=== PATIENT | male | born 1970 | race Caucasian/White ===

== ENCOUNTER 2023-05-19 14:26 | Emergency (ER) | payer MEDICAID, OTHER ==
[~2023-05-19] VITALS: Ht 180.3 cm; Wt 122.7 kg
[~2023-05-19 14:26] MED LIST: IBUP-1985 PO
[2023-05-19 15:02] VITALS: TEMP 97.8
[2023-05-19 15:09] LABS: BASOPHILS % (AUTO) 0.3 % (0-1); EOSINOPHILS # (AUTO) 0.1 X10'3 (0-0.9); EOSINOPHILS % (AUTO) 1.4 % (0-6); HEMATOCRIT 47.1 % (42.0-52.0); HEMOGLOBIN 16.2 g/dl (14.0-17.9); LYMPHOCYTES # (AUTO) 2.1 X10'3 (1.1-4.8); LYMPHOCYTES % (AUTO) 29.3 % (21-51); MEAN CORPUSCULAR HEMOGLOBIN 30.7 PG (27.0-31.0); MEAN CORPUSCULAR HGB CONC 34.4 g/dL (33.0-36.5); MEAN CORPUSCULAR VOLUME 89.4 FL (78-98); MEAN PLATELET VOLUME 9.6 FL (7.4-10.4); MONOCYTES # (AUTO) 0.5 X10'3 (0-0.9); MONOCYTES % (AUTO) 6.9 % (2-12); NEUTROPHILS # (AUTO) 4.5 X10'3 (1.8-7.7); NEUTROPHILS % (AUTO) 62.1 % (42-75); PLATELET COUNT 245 X10'3 (140-440); RED BLOOD COUNT 5.28 X10'6 (4.70-6.10); RED CELL DISTRIBUTION WIDTH 12.7 % (11.5-14.5); WHITE BLOOD COUNT 7.2 X10'3 (4.5-11.0)
[2023-05-19 15:34] VITALS: BP 103/75; PULSE 77; RESP 18; O2SAT 96
[2023-05-19 15:35] LABS: ALANINE AMINOTRANSFERASE 23 U/L (12-78); ALBUMIN 3.7 G/DL (3.4-5.0); ALBUMIN/GLOBULIN RATIO 0.8 (1.1-1.5); ALKALINE PHOSPHATASE 92 IU/L (46-116); ANION GAP 7 (8-16); ASPARTATE AMINO TRANSFERASE 22 U/L (10-37); BILIRUBIN,TOTAL 0.4 MG/DL (0.1-1.0); BLOOD UREA NITROGEN 10 MG/DL (7-18); CALCIUM 9.1 MG/DL (8.5-10.1); CHLORIDE 96 MMOL/L (99-107); CREATININE 1.11 MG/DL (0.60-1.10); POTASSIUM 3.9 MMOL/L (3.5-5.1); PRO BRAIN NATRIURETIC PEPTIDE < 30 PG/ML (0-125); SODIUM 130 MMOL/L (135-145); TOTAL CARBON DIOXIDE 26.6 MMOL/L (24-32); TOTAL PROTEIN 8.1 G/DL (6.4-8.2); eCRCL 85 ML/MIN; eGFR 70 ML/MIN
[2023-05-19 15:46] LABS: GLUCOSE 515 MG/DL (70-104)
--- NOTE | 2023-05-19 16:59 | NUR ---
pt wanting to leave [facility] because he can't eat d/t failing swallow screen. Dr Ana jane. Waiting return call.
== END 2023-05-19 18:16 | disposition left against medical advice (07) ==
LOC: ER 14:27
DX: R07.89 Other chest pain (principal); E11.9 Type 2 diabetes mellitus without complications; Z88.0 Allergy status to penicillin; Z79.2 Long term (current) use of antibiotics
CPT/HCPCS: 36415; 71045; 80053; 83880; 84484; 85025; 93005; 99285

== ENCOUNTER 2024-12-05 17:16 | Inpatient (IN) | payer MEDICAID ==
[~2024-12-05] VITALS: Ht 177.8 cm; Wt 89.3 kg
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
[2024-12-05] MEDS ORDERED: vancomycin inj 1,000 MG in normal saline 250ml IV soln 250 ML IV ONE (18:15)
[2024-12-05 18:20] LABS: BASOPHILS # (AUTO) 0.1 X10'3 (0-0.2); BASOPHILS % (AUTO) 1.5 % (0-1); EOSINOPHILS # (AUTO) 0.1 X10'3 (0-0.9); EOSINOPHILS % (AUTO) 1.2 % (0-6); HEMATOCRIT 27.1 % (42.0-52.0); HEMOGLOBIN 9.2 g/dl (14.0-17.9); LYMPHOCYTES # (AUTO) 1.8 X10'3 (1.1-4.8); LYMPHOCYTES % (AUTO) 23.1 % (21-51); MEAN CORPUSCULAR HGB CONC 33.8 g/dL (33.0-36.5); MEAN PLATELET VOLUME 7.2 FL (7.4-10.4); MONOCYTES # (AUTO) 0.6 X10'3 (0-0.9); MONOCYTES % (AUTO) 8.5 % (2-12); NEUTROPHILS % (AUTO) 65.7 % (42-75); PLATELET COUNT 703 X10'3 (140-440); RED BLOOD COUNT 3.27 X10'6 (4.70-6.10); RED CELL DISTRIBUTION WIDTH 13.9 % (11.5-14.5); WHITE BLOOD COUNT 7.6 X10'3 (4.5-11.0)
--- NOTE | 2024-12-05 18:26 | RADIOLOGY REPORT ---
CHEST RADIOGRAPH Indication: SEPSIS Technique: Single frontal view of the chest was obtained Comparison: DI CHEST,SINGLE VIEW on DOS: 05/19/23 FINDINGS: Lines and Tubes: None appears to be a foreign body in the right upper chest or can be an artifact Lungs: No focal consolidation. Pleura: No effusion. No pneumothorax. Cardiomediastinal contours: Unremarkable Bones: No acute osseous abnormality. IMPRESSION: 1. No acute cardiopulmonary disease.
[2024-12-05 18:28] LABS: ANION GAP 6 (8-16); BLOOD UREA NITROGEN 12 MG/DL (7-18); BUN/CREATININE RATIO 9.8 (10.0-20.0); CALCIUM 9.2 MG/DL (8.5-10.1); CHLORIDE 99 MMOL/L (99-107); CREATININE 1.22 MG/DL (0.60-1.10); GLUCOSE 189 MG/DL (70-104); POTASSIUM 4.4 MMOL/L (3.5-5.1); SODIUM 133 MMOL/L (135-145); TOTAL CARBON DIOXIDE 27.7 MMOL/L (24-32); eCRCL 69 ML/MIN; eGFR 62 ML/MIN
[2024-12-05] MEDS: normal saline 1000ML IV soln IVB ONE ×2 (18:54→18:57)
[2024-12-05] MEDS ORDERED: iohexol 300mg/ml 100ml inj. ONE (18:54)
[2024-12-05] MEDS: cefepime 1GM/NS ADD-VANTAGE 100 ML IV ONE (18:55)
[2024-12-05] MEDS: vancomycin/NS 1 GM ADD-VANTAGE 250 ML IV ONE (19:23)
[2024-12-05] MEDS ORDERED: potassium Cl 40MEQ/1/2NS 520ml 520 ML IV PRN (19:35)
[2024-12-05] MEDS ORDERED: potassium Cl 20 mEq SR tablet PO PRN ×2 (19:35)
[2024-12-05] MEDS ORDERED: magnesium sulf-water 2g/50mL 50 ML IV PRN (19:35)
[2024-12-05] MEDS ORDERED: mag hydrox/Alum hydrox/simeth 30ml oral suspension PO PRN (19:35)
[2024-12-05] MEDS ORDERED: magnesium sulf-water 4G/100mL 100 ML IV PRN (19:35)
[2024-12-05] MEDS ORDERED: acetaminophen 325mg tablet PO PRN (19:35)
[2024-12-05] MEDS ORDERED: magnesium Cl slow-release 64mg tablet PO PRN (19:35)
[2024-12-05] MEDS ORDERED: GABA-535 PO (19:36)
[2024-12-05] MEDS ORDERED: SULF-14 PO (19:36)
[2024-12-05] MEDS ORDERED: AMOX-14 PO (19:36)
[2024-12-05] MEDS: docusate sod 100mg capsule PO SCH (20:00)
[2024-12-05] MEDS: K and/or MAG REPLACEMENT MC SCH (20:02)
[2024-12-05 20:13] LABS: HEMOGLOBIN A1C 6.6 % (4.5-6.2)
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
--- NOTE | 2024-12-05 20:46 | RADIOLOGY REPORT ---
INDICATION: infection right COMPARISON: None TECHNIQUE: CT of the right lower extremity was performed with contrast. Volume transverse images were obtained and reconstructed in multiple planes using bone and soft tissue algorithms. Radiation Dose Information: CT Dose: CTDI volume is 14.4 mGy. Dose-length product is 908.9 mGy*cm FINDINGS/IMPRESSION: Post resection of the distal 1st digit past the level of the 1st metatarsal. Surgical screw fixation of the distal fibula and distal tibia /ankle joint. Severe destructive changes of the ankle joint. Severe edema and phlegmonous type change within and around the ankle joint. Few ill-defined fluid col lections are present adjacent to the medial malleolus largest of which measures 2.0 cm. Severe soft-tissue swelling and ulceration of the medial malleolus and distal 1st metatarsal. Acute on chronic osteomyelitis are within differential considerations. Clinical correlation advised.
[2024-12-05] MEDS ORDERED: dextrose 50%-water 50ml dispensing syringe IV PRN ×2 (20:55)
[2024-12-05] MEDS ORDERED: DEXTROSE 15 GM of carb/4 tabs (each vial/BOTTLE has 4 tablets) PO PRN ×2 (20:55)
[2024-12-05] MEDS ORDERED: glucagon, human recombinant 1mg kit SUBCUT PRN (20:55)
[2024-12-05 21:05] LABS: C-REACTIVE PROTEIN 7.08 MG/DL (0.0-0.5)
[2024-12-05 21:15] VITALS: BP 121/62; PULSE 91; TEMP 99; O2SAT 97
[2024-12-05] MEDS: normal saline 1000ml 1,000 ML IV SCH (21:21)
[2024-12-05] MEDS: INSULIN LISPRO 100 UNIT/ML INSULN.PEN MULTI-DOSE SQ SCH (22:24)
[2024-12-05] MEDS: morphine 2 MG/ML inj. syringe IV PRN (22:25)
[2024-12-05 23:21] LABS: BILIRUBIN,URINE NEGATIVE (Neg); CLARITY,URINE CLEAR (Clear); COLOR,URINE YELLOW (Yellow); GLUCOSE, URINE NEGATIVE (Neg); KETONES,URINE NEGATIVE (Neg); LEUKOCYTE ESTERASE ,URINE NEGATIVE (Neg); NITRITES, URINE NEGATIVE (Neg); OCCULT BLOOD,URINE MODERATE (Neg); PROTEIN,URINE NEGATIVE (Neg)
[2024-12-05 23:24] LABS: UA COLLECTION TYPE URINAL
[2024-12-05 23:27] LABS: BACTERIA,URINE FEW /HPF (Neg); RBC,URINE 20-50 /HPF (0-2); SQUAMOUS EPITHELIAL CELL,UR NONE SEEN /LPF (FEW); WBC,URINE 0-4 /HPF (0-4)
[2024-12-05 23:48] LABS: UA EOSINOPHILS NO EOS /HPF
[2024-12-05 23:56] LABS: TOTAL PROTEIN,URINE RANDOM 14.2 MG/DL
[2024-12-06] MEDS: piperacillin/tazo 3.375gm/50ml 50 ML IV SCH (00:04)
[2024-12-06 01:35] VITALS: BP 128/53; PULSE 125; TEMP 98.5; O2SAT 97
[2024-12-06] MEDS: ondansetron/PF 4mg/2ml inj IV PRN (03:04)
[2024-12-06 04:46] LABS: BASOPHILS % (AUTO) 0.5 % (0-1); EOSINOPHILS # (AUTO) 0.1 X10'3 (0-0.9); EOSINOPHILS % (AUTO) 0.7 % (0-6); HEMATOCRIT 24.2 % (42.0-52.0); HEMOGLOBIN 8.1 g/dl (14.0-17.9); LYMPHOCYTES # (AUTO) 0.4 X10'3 (1.1-4.8); LYMPHOCYTES % (AUTO) 5.1 % (21-51); MEAN CORPUSCULAR HEMOGLOBIN 27.6 PG (27.0-31.0); MEAN CORPUSCULAR HGB CONC 33.4 g/dL (33.0-36.5); MEAN CORPUSCULAR VOLUME 82.7 FL (78-98); MEAN PLATELET VOLUME 7.2 FL (7.4-10.4); MONOCYTES # (AUTO) 0.1 X10'3 (0-0.9); NEUTROPHILS # (AUTO) 6.9 X10'3 (1.8-7.7); NEUTROPHILS % (AUTO) 91.7 % (42-75); PLATELET COUNT 384 X10'3 (140-440); RED BLOOD COUNT 2.92 X10'6 (4.70-6.10); RED CELL DISTRIBUTION WIDTH 13.9 % (11.5-14.5); WHITE BLOOD COUNT 7.5 X10'3 (4.5-11.0)
[2024-12-06] MEDS: metoclopramide 5 mg/ml inj IV ONE (05:00)
[2024-12-06 05:13] LABS: % IRON SATURATION 21 % (11-46); IRON 23 UG/DL (53-167); TOTAL IRON BINDING CAPACITY 107 UG/DL (259-388)
[2024-12-06 05:18] LABS: ALANINE AMINOTRANSFERASE 12 U/L (12-78); ALBUMIN 1.5 G/DL (3.4-5.0); ALBUMIN/GLOBULIN RATIO 0.2 (1.1-1.5); ALKALINE PHOSPHATASE 170 IU/L (46-116); ANION GAP 5 (8-16); ASPARTATE AMINO TRANSFERASE 23 U/L (10-37); BILIRUBIN,TOTAL 0.2 MG/DL (0.1-1.0); BLOOD UREA NITROGEN 10 MG/DL (7-18); CALCIUM 8.2 MG/DL (8.5-10.1); CHLORIDE 104 MMOL/L (99-107); CREATININE 1.11 MG/DL (0.60-1.10); FERRITIN 535 NG/ML (26-388); GLUCOSE 117 MG/DL (70-104); MAGNESIUM 1.6 MG/DL (1.5-2.4); POTASSIUM 4.2 MMOL/L (3.5-5.1); SODIUM 133 MMOL/L (135-145); TOTAL CARBON DIOXIDE 24.5 MMOL/L (24-32); TOTAL PROTEIN 7.6 G/DL (6.4-8.2); eCRCL 80 ML/MIN; eGFR 70 ML/MIN
[2024-12-06 06:00] VITALS: BP 100/52; PULSE 93; RESP 16; TEMP 98.7; O2SAT 96
[2024-12-06 08:00] VITALS: RESP 16; O2SAT 96
--- NOTE | 2024-12-06 08:18 | PROGRESS NOTE ---
Daily Progress Note Providers to CC ~ Antibiotic Timeout Antibiotic Ordered?: Yes Subjective cc- I am getting severely agitated as I have not eaten since 9:00 p.m. and anyways I am going to do surgery at midnight when are you going to do the stupid surgery and if I wants surgery and wanted cut at my ankle I want to cut below my knee and what prosthesis 2nd go back to work I want this done sooner than later I am tired of [facility] cutting small pieces at a time. When I asked him how many surgeries he has had he has only had one amputation of the right 1st toe so when I asked him what is the mean cutting little pieces he states that is the way it normally happens and that is not what he wants he wants to be amputated at the knee. He wants to be fed ROJELIO. Review of systems negative for all 10 systems reviewed Objective Vital Signs Date Time Temp Pulse Resp B/P (MAP) Pulse Ox O2 Delivery O2 Flow Rate FiO2 12/06/24 03:54 14 12/06/24 02:03 Room Air 12/06/24 01:35 98.5 125 128/53 (78) 97 Result Diagram: 12/06/24 0423 12/06/24 0423 Patient is alert and oriented x3 in no acute distress lying down comfortably speaking in full sentences HEENT normocephalic nontraumatic head PERRLA. EOMI. CVS first and second heart sounds are regular rate rhythm no murmurs gallops or rubs Respiratory system is clear to auscultate bilaterally no rales rhonchi crackles or wheezing Abdomen is soft bowel sounds are positive nontender nondistended Extremities no clubbing cyanosis or edema Problem\Assessment\Plan Assessment and plan: 54-year-old male patient came to the hospital with chief complaint of pain at the level of the right foot, presence of chronic wounds foul-smelling. Left foot wounds: Possible osteomyelitis: The patient came to the hospital with chief complaint of pain at the level of the right ankle, presence of chronic wounds. CT scan of the right lower extremity: Post resection of the distal 1st digit past the level of the 1st metatarsal. Surgical screw fixation of the distal fibula and distal tibia /ankle joint. Severe destructive changes of the ankle joint. Severe edema and phlegmonous type change within and around the ankle joint. Few ill-defined fluid collections are present adjacent to the medial malleolus largest of which measures 2.0 cm. Severe soft-tissue swelling and ulceration of the medial malleolus and distal 1st metatarsal. Acute on chronic osteomyelitis are within differential considerations. Follow-up blood culture. Follow-up wound culture. Wound Care consult. Orthopedic surgeon consulted by the ER physician. I also left Dr. Cerna a voicemail regarding pending consultation Later that morning I spoke to Dr. Cerna in details and he wants me to consult the network internship Dr. Gomez who have left a voicemail for. I am going to discontinue the patient's NPO status as he states he is getting very agitated Vancomycin pharmacy to dose. Zosyn IV t.i.d. We will resume the patient's bad till he is seen by network internship Diabetes mellitus: Type 2 Hyperglycemia: Glucose levels 189. Hemoglobin A1c 6.6. Hyperglycemia/hypoglycemia protocol in place. Medium dose short-acting insulin sliding scale on place. Normocytic normochromic anemia: Hemoglobin was on 12/05/2024 9.2,-dropped to 8.1 today morning Positive iron Deficiency start the patient on IV iron TARYN likely secondary to renal tubular stasis: Creatinine 1.22, GFR 62, BUN/creatinine ratio 9.8. Follow-up urine lytes. NS at 80 mL/hour. Hyponatremia- Monitor Code status: Full code DVT prophylaxis: SCDs Analgesia/sedation: Morphine Line/tube: PIV GI prophylaxis: None Nutrition: 75 carb controlled diet. NPO after midnight. PT: Ordered Prognosis: Guarded Date of Service: December 06, 2024 Billing Provider: PROSPER SAAVEDRA MD Common Visit Codes: [id number] INP/OBS CARE(HIGH) PROSPER SAAVEDRA MD December 06, 2024 08:18
[2024-12-06 10:00] VITALS: BP 93/54; PULSE 74; RESP 14; TEMP 97.9; O2SAT 98
[2024-12-06] MEDS: vancomycin/NS 1 GM ADD-VANTAGE 250 ML IV SCH (10:02)
[2024-12-06 14:05] LABS: CHOL/HDL RATIO 3.8 (0.00-4.99); CHOLESTEROL 96 MG/DL (0-200); HDL CHOLESTEROL 25 MG/DL (35-60); LDL CHOLESTEROL 65 MG/DL (50-100); TRIGLYCERIDES 50 MG/DL (20-135)
[2024-12-06 18:30] VITALS: BP 100/65; PULSE 84; RESP 19; TEMP 97.9; O2SAT 98
[2024-12-06 22:00] VITALS: BP 131/63; PULSE 89; RESP 16; TEMP 99.3; O2SAT 96
[2024-12-07] VITALS (8 sets, daily range): BP systolic 116–152; BP diastolic 56–78; PULSE 73–86; RESP 13–18; TEMP 98–99.5; O2SAT 96–99
[2024-12-07] MEDS: VANCOMYCIN LEVEL IV ONE (06:30)
[2024-12-07 06:57] LABS: BASOPHILS % (AUTO) 0.7 % (0-1); EOSINOPHILS # (AUTO) 0.1 X10'3 (0-0.9); EOSINOPHILS % (AUTO) 2.1 % (0-6); HEMATOCRIT 24.1 % (42.0-52.0); HEMOGLOBIN 8.1 g/dl (14.0-17.9); LYMPHOCYTES # (AUTO) 1.3 X10'3 (1.1-4.8); LYMPHOCYTES % (AUTO) 25.7 % (21-51); MEAN CORPUSCULAR HEMOGLOBIN 27.8 PG (27.0-31.0); MEAN CORPUSCULAR HGB CONC 33.8 g/dL (33.0-36.5); MEAN CORPUSCULAR VOLUME 82.4 FL (78-98); MEAN PLATELET VOLUME 7.4 FL (7.4-10.4); MONOCYTES # (AUTO) 0.5 X10'3 (0-0.9); MONOCYTES % (AUTO) 9.1 % (2-12); NEUTROPHILS # (AUTO) 3.1 X10'3 (1.8-7.7); NEUTROPHILS % (AUTO) 62.4 % (42-75); PLATELET COUNT 312 X10'3 (140-440); RED BLOOD COUNT 2.92 X10'6 (4.70-6.10); RED CELL DISTRIBUTION WIDTH 14.3 % (11.5-14.5)
[2024-12-07 07:24] LABS: ALANINE AMINOTRANSFERASE 12 U/L (12-78); ALBUMIN 1.6 G/DL (3.4-5.0); ALBUMIN/GLOBULIN RATIO 0.2 (1.1-1.5); ALKALINE PHOSPHATASE 152 IU/L (46-116); ANION GAP 6 (8-16); ASPARTATE AMINO TRANSFERASE 18 U/L (10-37); BILIRUBIN,TOTAL 0.2 MG/DL (0.1-1.0); BLOOD UREA NITROGEN 13 MG/DL (7-18); BUN/CREATININE RATIO 11.4 (10.0-20.0); CALCIUM 8.3 MG/DL (8.5-10.1); CHLORIDE 103 MMOL/L (99-107); CREATININE 1.14 MG/DL (0.60-1.10); GLUCOSE 138 MG/DL (70-104); MAGNESIUM 1.9 MG/DL (1.5-2.4); SODIUM 135 MMOL/L (135-145); TOTAL CARBON DIOXIDE 26.1 MMOL/L (24-32); TOTAL PROTEIN 8.3 G/DL (6.4-8.2); VANCOMYCIN,TROUGH 12.7 ug/mL (10.0-20.0); eCRCL 78 ML/MIN; eGFR 67 ML/MIN
[2024-12-07] MEDS: JUVEN Smoothie Arginine/Glut./Ca2+Bmb (Juven 19.3pkt) 240ml cup PO SCH (07:30)
[2024-12-07] MEDS ORDERED: VANCOMYCIN/WATER FOR INJ (PEG) 1.25GM/250 ML IVPB IV SCH ×3 (07:52→08:00)
[2024-12-07] MEDS: VANCOmycin 1250MG/NS 250ml Bag 250 ML IV SCH (08:24)
--- NOTE | 2024-12-07 10:02 | PROGRESS NOTE ---
Daily Progress Note Providers to CC ~ Antibiotic Timeout Antibiotic Ordered?: Yes Subjective Chief complaint none Patient states if he can't not fix it cut it off Objective Vital Signs Date Time Temp Pulse Resp B/P (MAP) Pulse Ox O2 Delivery O2 Flow Rate FiO2 12/07/24 08:00 17 98 Room Air 12/07/24 01:15 99.5 75 122/77 (92) Result Diagram: 12/07/24 0617 12/07/24 0617 Patient is alert and oriented x3 in no acute distress lying down comfortably speaking in full sentences HEENT normocephalic nontraumatic head PERRLA. EOMI. CVS first and second heart sounds are regular rate rhythm no murmurs gallops or rubs Respiratory system is clear to auscultate bilaterally no rales rhonchi crackles or wheezing Abdomen is soft bowel sounds are positive nontender nondistended Extremities no clubbing cyanosis or edema Problem\Assessment\Plan Assessment and plan: 54-year-old male patient came to the hospital with chief complaint of pain at the level of the right foot, presence of chronic wounds foul-smelling. Left foot wounds: osteomyelitis: The patient came to the hospital with chief complaint of pain at the level of the right ankle, presence of chronic wounds. CT scan of the right lower extremity: Post resection of the distal 1st digit past the level of the 1st metatarsal. Surgical screw fixation of the distal fibula and distal tibia /ankle joint. Severe destructive changes of the ankle joint. Severe edema and phlegmonous type change within and around the ankle joint. Few ill-defined fluid collections are present adjacent to the medial malleolus largest of which measures 2.0 cm. Severe soft-tissue swelling and ulceration of the medial malleolus and distal 1st metatarsal. Acute on chronic osteomyelitis are within differential considerations. Follow-up blood culture. Follow-up wound culture. Wound Care consult. Orthopedic surgeon consulted by the ER physician. I also left Dr. Cerna a voicemail regarding pending consultation Later that morning I spoke to Dr. Cerna in details and he wants me to consult the mill operator head Dr. Diza who have left a voicemail for. Who I spoke to today believes Dr. Cerna needs to get reinvolved as this needs to be a right BKA I also left a text message for Dr. Cerna Vancomycin pharmacy to dose. Zosyn IV t.i.d. Diabetes mellitus: Type 2 Hyperglycemia: Glucose levels 189. Hemoglobin A1c 6.6. Hyperglycemia/hypoglycemia protocol in place. Medium dose short-acting insulin sliding scale on place. Normocytic normochromic anemia: Hemoglobin was on 12/05/2024 9.2,-dropped to 8.1 today morning Positive iron Deficiency start the patient on IV iron TARYN likely secondary to renal tubular stasis: Creatinine 1.22, GFR 62, BUN/creatinine ratio 9.8. Follow-up urine lytes. NS at 80 mL/hour. Hyponatremia- Monitor Code status: Full code DVT prophylaxis: SCDs Analgesia/sedation: Morphine Line/tube: PIV GI prophylaxis: None Nutrition: 75 carb controlled diet. NPO after midnight. PT: Ordered Prognosis: Guarded Date of Service: December 07, 2024 Billing Provider: PROSPER SAAVEDRA MD Common Visit Codes: [id number] INP/OBS CARE(HIGH) PROSPER SAAVEDRA MD December 07, 2024 10:02
--- NOTE | 2024-12-07 12:28 | RADIOLOGY REPORT ---
CLINICAL INDICATION: osteomyelitis of ankle COMPARISON: CT CT LOWER EXTREMITY W/ IV CONTRAST on DOS: 12/05/24 TECHNIQUE: Multiplanar, multisequence MRI of the right foot was performed without and with intravenou s contrast. INTERPRETATION: Bones: There is abnormal T1 T1 hypointense, T2 hyperintensity in the distal tibia, calcaneus, distal fibula and the talus associated with enhancement, consistent with osteomyelitis. Open reduction inter nal fixation of the distal fibula noted. There is abnormal disorganization of the hindfoot joints wit h significant displacement of the calcaneus relative to the talus. Soft tissues: There is soft tissue thickening and fluid collection deep tor skin ulceration. This ar ea of soft tissue thickening and edema measures 4.4 x 4.5 cm with enhancement consistent with phlegmo n and possible complex abscess. There is diffuse soft tissue edema and enhancement surrounding the p osterior tendons of the hindfoot , the Medial and lateral hindfoot. IMPRESSION: 1. 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
[2024-12-07] MEDS: GADOTERATE MEGLUMINE 7.5 MMOL/15 ML VIAL IV ONE (18:43)
[2024-12-07] MEDS: morphine 2 MG/ML inj. syringe IV PRN (23:29)
[2024-12-08 04:14] LABS: BASOPHILS % (AUTO) 0.8 % (0-1); EOSINOPHILS # (AUTO) 0.1 X10'3 (0-0.9); HEMATOCRIT 23.6 % (42.0-52.0); LYMPHOCYTES # (AUTO) 1.5 X10'3 (1.1-4.8); LYMPHOCYTES % (AUTO) 29.2 % (21-51); MEAN CORPUSCULAR HEMOGLOBIN 27.8 PG (27.0-31.0); MEAN CORPUSCULAR HGB CONC 34.1 g/dL (33.0-36.5); MEAN CORPUSCULAR VOLUME 81.5 FL (78-98); MEAN PLATELET VOLUME 7.4 FL (7.4-10.4); MONOCYTES # (AUTO) 0.5 X10'3 (0-0.9); MONOCYTES % (AUTO) 10.4 % (2-12); NEUTROPHILS # (AUTO) 2.9 X10'3 (1.8-7.7); NEUTROPHILS % (AUTO) 57.6 % (42-75); PLATELET COUNT 233 X10'3 (140-440); RED BLOOD COUNT 2.89 X10'6 (4.70-6.10); RED CELL DISTRIBUTION WIDTH 13.9 % (11.5-14.5); WHITE BLOOD COUNT 5.1 X10'3 (4.5-11.0)
[2024-12-08 04:27] LABS: ALANINE AMINOTRANSFERASE 12 U/L (12-78); ALBUMIN 1.6 G/DL (3.4-5.0); ALBUMIN/GLOBULIN RATIO 0.2 (1.1-1.5); ALKALINE PHOSPHATASE 135 IU/L (46-116); ANION GAP 5 (8-16); ASPARTATE AMINO TRANSFERASE 15 U/L (10-37); BILIRUBIN,TOTAL 0.2 MG/DL (0.1-1.0); BLOOD UREA NITROGEN 11 MG/DL (7-18); BUN/CREATININE RATIO 10.7 (10.0-20.0); CALCIUM 8.3 MG/DL (8.5-10.1); CHLORIDE 102 MMOL/L (99-107); CREATININE 1.03 MG/DL (0.60-1.10); GLUCOSE 148 MG/DL (70-104); MAGNESIUM 1.7 MG/DL (1.5-2.4); POTASSIUM 3.9 MMOL/L (3.5-5.1); SODIUM 134 MMOL/L (135-145); TOTAL CARBON DIOXIDE 26.8 MMOL/L (24-32); TOTAL PROTEIN 8.3 G/DL (6.4-8.2); eCRCL 87 ML/MIN; eGFR 76 ML/MIN
[2024-12-08 06:00] VITALS: BP 128/75; PULSE 74; RESP 16; TEMP 98.5; O2SAT 96
[2024-12-08 08:00] VITALS: RESP 17; O2SAT 96
[2024-12-08 10:00] VITALS: BP 138/75; PULSE 73; RESP 17; TEMP 97.4; O2SAT 99
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
[2024-12-08 18:00] VITALS: BP 115/71; PULSE 85; RESP 17; TEMP 97.7; O2SAT 99
[2024-12-08] MEDS: VANCOMYCIN LEVEL IV ONE (18:30)
[2024-12-08 20:00] VITALS: RESP 17; O2SAT 99
[2024-12-08 22:00] VITALS: BP 119/74; PULSE 86; RESP 20; TEMP 98.8; O2SAT 98
[2024-12-09 04:24] LABS: BASOPHILS % (AUTO) 0.6 % (0-1); EOSINOPHILS # (AUTO) 0.1 X10'3 (0-0.9); EOSINOPHILS % (AUTO) 1.7 % (0-6); HEMATOCRIT 24.4 % (42.0-52.0); HEMOGLOBIN 8.2 g/dl (14.0-17.9); LYMPHOCYTES # (AUTO) 1.5 X10'3 (1.1-4.8); LYMPHOCYTES % (AUTO) 29.9 % (21-51); MEAN CORPUSCULAR HEMOGLOBIN 27.6 PG (27.0-31.0); MEAN CORPUSCULAR HGB CONC 33.7 g/dL (33.0-36.5); MEAN CORPUSCULAR VOLUME 81.9 FL (78-98); MEAN PLATELET VOLUME 7.5 FL (7.4-10.4); MONOCYTES # (AUTO) 0.6 X10'3 (0-0.9); MONOCYTES % (AUTO) 11.2 % (2-12); NEUTROPHILS # (AUTO) 2.9 X10'3 (1.8-7.7); NEUTROPHILS % (AUTO) 56.6 % (42-75); PLATELET COUNT 214 X10'3 (140-440); RED BLOOD COUNT 2.97 X10'6 (4.70-6.10); WHITE BLOOD COUNT 5.1 X10'3 (4.5-11.0)
[2024-12-09 04:47] LABS: ALANINE AMINOTRANSFERASE 13 U/L (12-78); ALBUMIN 1.6 G/DL (3.4-5.0); ALBUMIN/GLOBULIN RATIO 0.2 (1.1-1.5); ALKALINE PHOSPHATASE 122 IU/L (46-116); ANION GAP 5 (8-16); ASPARTATE AMINO TRANSFERASE 10 U/L (10-37); BILIRUBIN,TOTAL 0.2 MG/DL (0.1-1.0); BLOOD UREA NITROGEN 9 MG/DL (7-18); BUN/CREATININE RATIO 8.3 (10.0-20.0); CALCIUM 8.5 MG/DL (8.5-10.1); CHLORIDE 104 MMOL/L (99-107); CREATININE 1.08 MG/DL (0.60-1.10); GLUCOSE 169 MG/DL (70-104); MAGNESIUM 1.7 MG/DL (1.5-2.4); SODIUM 137 MMOL/L (135-145); TOTAL CARBON DIOXIDE 28.1 MMOL/L (24-32); TOTAL PROTEIN 8.2 G/DL (6.4-8.2); eCRCL 83 ML/MIN; eGFR 72 ML/MIN
[2024-12-09 06:42] VITALS: BP 133/73; PULSE 82; RESP 18; TEMP 97.9; O2SAT 97
[2024-12-09 10:00] VITALS: BP 132/76; PULSE 76; RESP 17; TEMP 95.1; O2SAT 97
--- NOTE | 2024-12-09 11:04 | PROGRESS NOTE ---
Progress Note Dictate Providers to CC ~ Subjective Subjective: He is well known to me from past hospitalizations at [facility]. He has been dealing with chronic wounds and infection of the right foot for quite some time. Right great toe has been amputated in the past. He is currently contemplating gyfox-hmj-rxmq amputation. He was recently hospitalized at [facility] with group A streptococcal sepsis at the end of October. MRSA has been isolated from his wound back in September. He now has significant infection at the hindfoot. Objective Objective: Middle-aged male lying in bed looking stable Lungs clear to auscultation bilaterally Heart regular rate and rhythm Abdomen soft and nontender Extremities - right foot is bandaged with significant drainage. Right great toe has been amputated previously. Lab Results: 12/09/24 0350 12/09/24 0350 Lab comments: Wound culture with Enterobacter Radiology comments: MRI with Charcot arthropathy superimposed on osteomyelitis in the right hindfoot Problem\Assessment\Plan Additional Plan 1. Severe right diabetic foot infection with osteomyelitis 2. h/o open trimalleolar fracture at the right ankle back in 2020 requiring surgical repair 3. Diabetes mellitus type 2 that is actually controlled 4. Recent group A streptococcal sepsis I do think he would be best served with right bmwpf-snk-fusy amputation He is planning to proceed with this procedure with Dr. Cerna Vancomycin and Zosyn are reasonable for now - should be able to stop soon LINDSAY MARTIN MD December 09, 2024 11:04
--- NOTE | 2024-12-09 13:41 | PROGRESS NOTE ---
Daily Progress Note Providers to CC ~ Antibiotic Timeout Antibiotic Ordered?: Yes Subjective Chief complaint BECCA finally did get a chance to speak to Dr. Cerna he is also going to come today before the surgery and answer all my 's and my questions I am ready to proceed with the surgery. Review of systems is negative for all 10 systems reviewed Objective Vital Signs Date Time Temp Pulse Resp B/P (MAP) Pulse Ox O2 Delivery O2 Flow Rate FiO2 12/09/24 12:59 16 12/09/24 06:42 97.9 82 133/73 (93) 97 Room Air Result Diagram: 12/09/24 0350 12/09/24 0350 Patient is alert and oriented x3 in no acute distress lying down comfortably speaking in full sentences HEENT normocephalic nontraumatic head PERRLA. EOMI. CVS first and second heart sounds are regular rate rhythm no murmurs gallops or rubs Respiratory system is clear to auscultate bilaterally no rales rhonchi crackles or wheezing Abdomen is soft bowel sounds are positive nontender nondistended Extremities no clubbing cyanosis or edema right lower extremities bandaged Problem\Assessment\Plan Assessment and plan: 54-year-old male patient came to the hospital with chief complaint of pain at the level of the right foot, presence of chronic wounds foul-smelling. Left foot wounds: osteomyelitis: Of right ankle Wound Care consult. Appreciated the wound is decreasing in size Dr. Cerna his aware of the patient and planning on surgery today- for a questionable right BKA if the patient agrees. Continue Vancomycin pharmacy to dose. and Zosyn IV t.i.d. Diabetes mellitus: Type 2 Hyperglycemia: Continue Accu-Cheks and insulin sliding scale Hemoglobin A1c 6.6. Hyperglycemia/hypoglycemia protocol in place. Medium dose short-acting insulin sliding scale on place. Normocytic normochromic anemia: Hemoglobin decreased to 8.2 Hemoglobin was on 12/05/2024 9.2, Positive iron Deficiency start the patient on IV iron TARYN likely secondary to renal tubular stasis: Resolved NS at 80 mL/hour. Hyponatremia-resolved Monitor Hep-Lock IV fluids Code status: Full code DVT prophylaxis: SCDs Analgesia/sedation: Morphine Line/tube: PIV GI prophylaxis: None Nutrition: 75 carb controlled diet. NPO after midnight. PT: Ordered Prognosis: Guarded Date of Service: December 09, 2024 Billing Provider: PROSPER SAAVEDRA MD Common Visit Codes: [id number] INP/OBS CARE(HIGH) PROSPER SAAVEDRA MD December 09, 2024 13:41
[2024-12-09] MEDS ORDERED: iron sucrose complex injection 100 MG in normal saline 100ml IV soln 95 ML IV SCH (13:45)
[2024-12-09] MEDS: iron sucrose complex injection 200 MG in normal saline 100ml IV soln 100 ML IV SCH (15:10)
[2024-12-09 20:00] VITALS: RESP 18; O2SAT 98
[2024-12-10] VITALS (19 sets, daily range): BP systolic 89–154; BP diastolic 45–79; PULSE 61–93; RESP 16–20; TEMP 98.3–98.4; O2SAT 70–99
[2024-12-10 06:21] LABS: BASOPHILS % (AUTO) 0.6 % (0-1); EOSINOPHILS # (AUTO) 0.1 X10'3 (0-0.9); EOSINOPHILS % (AUTO) 2.5 % (0-6); HEMATOCRIT 23.9 % (42.0-52.0); HEMOGLOBIN 8.2 g/dl (14.0-17.9); LYMPHOCYTES # (AUTO) 1.3 X10'3 (1.1-4.8); LYMPHOCYTES % (AUTO) 24.8 % (21-51); MEAN CORPUSCULAR HEMOGLOBIN 27.7 PG (27.0-31.0); MEAN CORPUSCULAR HGB CONC 34.1 g/dL (33.0-36.5); MEAN CORPUSCULAR VOLUME 81.3 FL (78-98); MEAN PLATELET VOLUME 7.7 FL (7.4-10.4); MONOCYTES # (AUTO) 0.5 X10'3 (0-0.9); MONOCYTES % (AUTO) 10.3 % (2-12); NEUTROPHILS # (AUTO) 3.2 X10'3 (1.8-7.7); NEUTROPHILS % (AUTO) 61.8 % (42-75); PLATELET COUNT 231 X10'3 (140-440); RED BLOOD COUNT 2.94 X10'6 (4.70-6.10); RED CELL DISTRIBUTION WIDTH 13.9 % (11.5-14.5); WHITE BLOOD COUNT 5.1 X10'3 (4.5-11.0)
[2024-12-10 06:36] LABS: ALANINE AMINOTRANSFERASE 14 U/L (12-78); ALBUMIN 1.6 G/DL (3.4-5.0); ALBUMIN/GLOBULIN RATIO 0.2 (1.1-1.5); ALKALINE PHOSPHATASE 111 IU/L (46-116); ANION GAP 4 (8-16); ASPARTATE AMINO TRANSFERASE 10 U/L (10-37); BILIRUBIN,TOTAL 0.2 MG/DL (0.1-1.0); BLOOD UREA NITROGEN 9 MG/DL (7-18); BUN/CREATININE RATIO 8.9 (10.0-20.0); CALCIUM 8.3 MG/DL (8.5-10.1); CHLORIDE 103 MMOL/L (99-107); CREATININE 1.01 MG/DL (0.60-1.10); GLUCOSE 295 MG/DL (70-104); SODIUM 135 MMOL/L (135-145); TOTAL CARBON DIOXIDE 27.6 MMOL/L (24-32); TOTAL PROTEIN 8.1 G/DL (6.4-8.2); eCRCL 88 ML/MIN; eGFR 78 ML/MIN
[2024-12-10] MEDS ORDERED: bacitracin 15gm ointment TP ONE (08:08)
[2024-12-10 08:48] LABS: PROTHROMBIN TIME 10.7 SECONDS (9.0-12.0)
--- NOTE | 2024-12-10 09:09 | ELECTROCARDIOGRAPH REPORT ---
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 RUPA Roa Measurements Intervals [place] Rate: 66 P: 64 SD: 154 QRS: 0 QRSD: 88 T: 30 QT: 406 QTc: 425 Interpretive Statements Normal sinus rhythm Septal infarct , age undetermined Electronically Signed On 12-10-2024 20:34:[address] RUPA Roa Please click the below link to view image of tracing.
[2024-12-10] MEDS ORDERED: cloNIDine hcl/PF 100mcg/ml inj ONE (09:12)
[2024-12-10] MEDS ORDERED: fentaNYL/PF 50MCG/1 ML 2ML syringe ONE (09:14)
[2024-12-10] MEDS ORDERED: midazolam 1 mg/ML 2ml injection ONE (09:14)
[2024-12-10] MEDS ORDERED: propofol inj 20 ML IV ONE (09:15)
[2024-12-10] MEDS ORDERED: ROPIVAcaine 0.5% (5mg/ml) 30ml vial ONE (09:18)
--- NOTE | 2024-12-10 10:46 | PROGRESS NOTE ---
Daily Progress Note Providers to CC ~ Antibiotic Timeout Antibiotic Ordered?: Yes Subjective Chief complaint nausea vomiting are intense Zofran is not helping Objective Vital Signs Date Time Temp Pulse Resp B/P (MAP) Pulse Ox O2 Delivery O2 Flow Rate FiO2 12/10/24 07:46 16 Room Air 12/10/24 06:55 98.4 69 112/74 (87 98 Result Diagram: 12/10/24 0532 12/10/24 0532 Patient is alert and oriented x3 in no acute distress lying down comfortably speaking in full sentences HEENT normocephalic nontraumatic head PERRLA. EOMI. CVS first and second heart sounds are regular rate rhythm no murmurs gallops or rubs Respiratory system is clear to auscultate bilaterally no rales rhonchi crackles or wheezing Abdomen is soft bowel sounds are positive nontender nondistended Extremities no clubbing cyanosis or edema right lower extremities bandaged Coagulation Studies Laboratory Tests Test 12/10/24 08:23 Prothrombin Time 10.7 SECONDS (9.0-12.0) INR International Normalized Ratio 1.0 INR Coagulation Comments Problem\Assessment\Plan Assessment and plan: 54-year-old male patient came to the hospital with chief complaint of pain at the level of the right foot, presence of chronic wounds foul-smelling. Left foot wounds: osteomyelitis: Of right ankle Wound Care consult. Appreciated the wound is decreasing in size Dr. Cerna status post right BKA postop day 0 Continue Vancomycin pharmacy to dose. and Zosyn IV t.i.d. -nausea vomiting apart from the Zofran add prochlorperazine Diabetes mellitus: Type 2 Hyperglycemia: Continue Accu-Cheks and insulin sliding scale Hemoglobin A1c 6.6. Hyperglycemia/hypoglycemia protocol in place. Medium dose short-acting insulin sliding scale on place. Normocytic normochromic anemia: Hemoglobin decreased to 8.2 Hemoglobin was on 12/05/2024 9.2, Positive iron Deficiency start the patient on IV iron TARYN likely secondary to renal tubular stasis: Resolved NS at 80 mL/hour. Hyponatremia-resolved Monitor Hep-Lock IV fluids Code status: Full code DVT prophylaxis: SCDs Analgesia/sedation: Morphine Line/tube: PIV GI prophylaxis: None Nutrition: 75 carb controlled diet. NPO after midnight. PT: Ordered Prognosis: Guarded Date of Service: December 10, 2024 Billing Provider: PROSPER SAAVEDRA MD Common Visit Codes: [id number] INP/OBS CARE(HIGH) PROSPER SAAVEDRA MD December 10, 2024 10:46
[2024-12-10] MEDS: ringers solution, lacted 1,000 ML IV SCH (11:15)
[2024-12-10] MEDS ORDERED: hydrALAZINE 20mg/ml inj. IV PRN (11:15)
[2024-12-10] MEDS ORDERED: HYDROmorphone/PF 0.2 MG/ML SYRINGE IV PRN ×2 (11:15)
[2024-12-10] MEDS ORDERED: morphine 2 MG/ML inj. syringe IV PRN (11:15)
[2024-12-10] MEDS ORDERED: labetalol 20mg/4ml (5mg/ml) syringe IV PRN (11:15)
[2024-12-10] MEDS ORDERED: ceFAZolin 1000mg inj ONE (11:37)
[2024-12-10] MEDS ORDERED: vancomycin 1,000mg inj ONE (11:41)
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
[2024-12-10] MEDS: ondansetron/PF 4mg/2ml inj IV PRN (13:07)
--- NOTE | 2024-12-10 13:11 | OPERATIVE REPORT ---
Operative Report Providers to ~ Date of Procedure: December 11, 2024 Pre-Operative Diagnosis: RIGHT LOWER EXTREMITY WOUND Post-Operative Diagnosis SAME as PRE-Op Procedure Performed Right hbsne-bfh-kejc amputation Surgeon: Peng Aldridge MD Acupuncture Physician None Anesthesiologist: Marco Antonio Patiño Type of Anesthesia: General, Other (Patient received a sciatic and femoral nerve block preoperatively for postoperative pain control.) Findings: Patient was found to have severe osteomyelitic involvement of the distal tibia talus and calcaneus with Charcot arthropathy on top of this. Open wounds with an open ankle joint evident on exam reason of the medial malleolus. Open calcaneus wound medially. Complications None Prosthetics\Implants used: None Estimated Blood Loss: Less than 100 cc Specimen Removed: Wvafe-ppj-snrl amputation approximately 15 cm below the tibial tubercle posterior flap technique Description of Procedure: Patient was taken to the operating room after I had obtained informed consent answered all of the questions. A signed his right leg. He was given can and continued his intravenous and for Infectious Disease. Once in the operating room he was given a sciatic as well as a femoral nerve block to the right leg postoperative pain management by anesthesia his right leg was prepped and draped in usual sterile orthopaedic fashion a well-padded upper thigh tourniquet was used. His left leg was protected with a SCD device. Surgical time-out was performed with the case was begun. Esmarch was used for exsanguination and tourniquet was insufflated proximally 15 cm below the tibial tubercle a transverse incision was made over the anterior 3rd of the tibia and towards the fibula and medially then a longitudinal incision was made at the corners of this incision distally some 30 cm completing the incision distally and posteriorly to form a place posterior flap. Incisions were hemostasis with the electrocautery dissection was then carried down to the tibia and fibula of the anterior compartment was resected at the level of the anterior incision. Vascular structures were tied with 0 and 2-0 Vicryl when incurred. Osteotomy of the tibia was followed after osteotomy of the proximal fibula which was cut approximately 2 cm proximal to the tibia. Anterior chamfer cut was made of the tibia to aid in prosthetic fitting. Posterior vascular and neurovascular structures neurologic structures were tied off when encountered. And then using careful dissection the peroneal muscles as well as the soleus muscle was dissected and kept with the lower extremity while the gastrocnemius muscle was preserved for the posterior flap. Tourniquet was released and knee to ensure that we had adequate hemostasis. All bleeding was controlled. Fascial closure of the posterior flap to the anterior fascia was accomplished with 2. FiberWire in the interrupted [id number] fashion. Subcuticular closure was accomplished with 0 and 2-0 Vicryl achieving good approximation. Prior to closure antibiotic impregnated normal saline was used 1 L for irrigation. Antibiotic 1 g of vancomycin powder was placed throughout the flap for prophylaxis. A medium Hemovac drain was placed into the flap and exited out laterally and slightly anterior lateral. This was sent to close suction. The skin was closed with 2-0 Vicryl subcuticularly with good capillary refill without undue tension on the posterior flap. Skin philip were then placed to secure the flap. Active code silver impregnated gauze was placed over the incision with fluffed 4x4s fluffs Kerlix were used to secure this as well as a large stump sock that was applied. Patient was now extubated and taken to the recovery room in stable condition there were no apparent perioperative complications needle and sponge count was reported to be correct. Counts repoted as correct: Yes PENG ALDRIDGE MD December 10, 2024 13:11
[2024-12-10] MEDS: acetaminophen 1,000mg/100ml IV 100 ML IV ONE ×2 (13:36→14:00)
[2024-12-10] MEDS: proCHLORperazine 10 MG/2 ml inj IV PRN (19:36)
[2024-12-11] MEDS: morphine 4 MG/ML inj SYRINge IV PRN (04:56)
[2024-12-11 06:00] VITALS: BP 118/63; PULSE 78; RESP 16; TEMP 98.4; O2SAT 96
[2024-12-11 08:00] VITALS: RESP 16; O2SAT 96
[2024-12-11] MEDS: HYDROcodone/acetaminophen 10/325mg tab PO PRN (08:51)
[2024-12-11] MEDS: normal saline 500ml IV soln 500 ML IV SCH (10:10)
[2024-12-11 11:00] VITALS: BP 124/70; PULSE 74; RESP 18; TEMP 98.7; O2SAT 97
--- NOTE | 2024-12-11 12:41 | PROGRESS NOTE ---
Daily Progress Note Providers to CC ~ Antibiotic Timeout Antibiotic Ordered?: Yes Subjective I am having pain at the surgical site but I am also having pain where there is no ankle and no leg places where he should be having pain. I am also having nausea but the black licorice is helping which is what my mother top me how to use. I am also having some muscle spasms. Review of systems negative for all 10 systems reviewed Objective Vital Signs Date Time Temp Pulse Resp B/P (MAP) Pulse Ox O2 Delivery O2 Flow Rate FiO2 12/11/24 11:00 98.7 74 18 124/70 (88) 97 Room Air 12/10/24 18:30 0.0 Result Diagram: 12/10/24 0532 12/10/24 0532 Patient is alert and oriented x3 in no acute distress lying down comfortably speaking in full sentences HEENT normocephalic nontraumatic head PERRLA. EOMI. CVS first and second heart sounds are regular rate rhythm no murmurs gallops or rubs Respiratory system is clear to auscultate bilaterally no rales rhonchi crackles or wheezing Abdomen is soft bowel sounds are positive nontender nondistended Extremities no clubbing cyanosis or edema right lower extremities bandaged Coagulation Studies Laboratory Tests Test 12/10/24 08:23 Prothrombin Time 10.7 SECONDS (9.0-12.0) INR International Normalized Ratio 1.0 INR Coagulation Comments Problem\Assessment\Plan Assessment and plan: 54-year-old male patient came to the hospital with chief complaint of pain at the level of the right foot, presence of chronic wounds foul-smelling. Left foot wounds: osteomyelitis: Of right ankle Wound Care consult. Appreciated the wound is decreasing in size Dr. Cerna status post right BKA postop day 1 Continue Vancomycin pharmacy to dose. and Zosyn IV t.i.d. Phantom pain Trial of gabapentin Also added [place] for pain control -nausea vomiting apart from the Zofran add prochlorperazine and black licorice which patient has at bedside also advised he can use arvind which he has asked his to bring him arvind lisy. Diabetes mellitus: Type 2 Hyperglycemia: Continue Accu-Cheks and insulin sliding scale Hemoglobin A1c 6.6. Hyperglycemia/hypoglycemia protocol in place. Medium dose short-acting insulin sliding scale on place. Blood sugars elevated to 295 yesterday morning Normocytic normochromic anemia: Hemoglobin decreased to 8.2 Hemoglobin was on 12/05/2024 9.2, Positive iron Deficiency start the patient on IV iron TARYN likely secondary to renal tubular stasis: Resolved NS at 80 mL/hour. Hyponatremia-resolved Monitor Hep-Lock IV fluids Code status: Full code DVT prophylaxis: SCDs Analgesia/sedation: Morphine Line/tube: PIV GI prophylaxis: None Nutrition: 75 carb controlled diet. NPO after midnight. PT: Ordered Prognosis: Guarded Date of Service: December 11, 2024 Billing Provider: PROSPER SAAVEDRA MD Common Visit Codes: [id number] INP/OBS CARE(HIGH) PROSPER SAAVEDRA MD December 11, 2024 12:41
[2024-12-11 18:00] VITALS: BP 138/60; PULSE 83; RESP 19; TEMP 98.1; O2SAT 98
[2024-12-11 20:00] VITALS: RESP 18
[2024-12-11 22:00] VITALS: BP 134/62; PULSE 81; RESP 20; TEMP 97.9; O2SAT 99
[2024-12-11] MEDS: gabapentin 300mg capsule PO SCH (22:06)
[2024-12-12] VITALS (9 sets, daily range): BP systolic 102–144; BP diastolic 57–74; PULSE 70–78; RESP 12–17; TEMP 97.6–99.3; O2SAT 96–99
[2024-12-12 06:05] LABS: BASOPHILS % (AUTO) 0.5 % (0-1); EOSINOPHILS # (AUTO) 0.1 X10'3 (0-0.9); EOSINOPHILS % (AUTO) 1.7 % (0-6); LYMPHOCYTES % (AUTO) 23.7 % (21-51); MEAN CORPUSCULAR HEMOGLOBIN 27.6 PG (27.0-31.0); MEAN CORPUSCULAR HGB CONC 33.4 g/dL (33.0-36.5); MEAN CORPUSCULAR VOLUME 82.7 FL (78-98); MEAN PLATELET VOLUME 7.8 FL (7.4-10.4); MONOCYTES # (AUTO) 0.7 X10'3 (0-0.9); MONOCYTES % (AUTO) 8.7 % (2-12); NEUTROPHILS # (AUTO) 5.4 X10'3 (1.8-7.7); NEUTROPHILS % (AUTO) 65.4 % (42-75); PLATELET COUNT 226 X10'3 (140-440); RED BLOOD COUNT 2.55 X10'6 (4.70-6.10); RED CELL DISTRIBUTION WIDTH 14.3 % (11.5-14.5); WHITE BLOOD COUNT 8.3 X10'3 (4.5-11.0)
[2024-12-12 06:38] LABS: HEMATOCRIT 21.1 % (42.0-52.0)
[2024-12-12 06:39] LABS: ALANINE AMINOTRANSFERASE 11 U/L (12-78); ALBUMIN 1.6 G/DL (3.4-5.0); ALBUMIN/GLOBULIN RATIO 0.3 (1.1-1.5); ALKALINE PHOSPHATASE 93 IU/L (46-116); ANION GAP 7 (8-16); ASPARTATE AMINO TRANSFERASE 19 U/L (10-37); BILIRUBIN,TOTAL 0.2 MG/DL (0.1-1.0); BLOOD UREA NITROGEN 11 MG/DL (7-18); CALCIUM 8.1 MG/DL (8.5-10.1); CHLORIDE 103 MMOL/L (99-107); GLUCOSE 108 MG/DL (70-104); POTASSIUM 4.3 MMOL/L (3.5-5.1); SODIUM 136 MMOL/L (135-145); TOTAL CARBON DIOXIDE 25.7 MMOL/L (24-32); TOTAL PROTEIN 7.9 G/DL (6.4-8.2); eCRCL 81 ML/MIN; eGFR 70 ML/MIN
--- NOTE | 2024-12-12 10:18 | PROGRESS NOTE ---
Daily Progress Note Providers to CC ~ Antibiotic Timeout Antibiotic Ordered?: Yes Subjective Chief complaint please do not call my right BKA a stump makes me seem like I am in [place] tree or something. At least you can be nice and called it a bud. Review of systems negative for all 10 systems reviewed Objective Vital Signs Date Time Temp Pulse Resp B/P (MAP) Pulse Ox O2 Delivery O2 Flow Rate FiO2 12/12/24 10:12 16 12/12/24 06:00 97.6 70 128/69 (88) 99 Room Air 12/11/24 20:00 0.0 Result Diagram: 12/12/24 0501 12/12/24 0501 Patient is alert and oriented x3 in no acute distress lying down comfortably speaking in full sentences patient is in a good mood HEENT normocephalic nontraumatic head PERRLA. EOMI. CVS first and second heart sounds are regular rate rhythm no murmurs gallops or rubs Respiratory system is clear to auscultate bilaterally no rales rhonchi crackles or wheezing Abdomen is soft bowel sounds are positive nontender nondistended Extremities no clubbing cyanosis or edema right lower extremities bandaged Coagulation Studies Laboratory Tests Test 12/10/24 08:23 Prothrombin Time 10.7 SECONDS (9.0-12.0) INR International Normalized Ratio 1.0 INR Coagulation Comments Problem\Assessment\Plan Assessment and plan: 54-year-old male patient came to the hospital with chief complaint of pain at the level of the right foot, presence of chronic wounds foul-smelling. Anemia patient dropped his hemoglobin to seven I am going to transfuse 1 unit of packed RBCs Check his micro and macro panel Left foot wounds: osteomyelitis: Of right ankle Wound Care consult. Appreciated the wound is decreasing in size Dr. Cerna status post right BKA postop day 2 Continue Vancomycin pharmacy to dose. and Zosyn IV t.i.d. Phantom pain Trial of gabapentin Also added [place] for pain control -nausea vomiting apart from the Zofran add prochlorperazine and black licorice which patient has at bedside also advised he can use arvind which he has asked his to bring him arvind lisy. Diabetes mellitus: Type 2 Hyperglycemia: Continue Accu-Cheks and insulin sliding scale Hemoglobin A1c 6.6. Hyperglycemia/hypoglycemia protocol in place. Medium dose short-acting insulin sliding scale on place. Blood sugars elevated to 295 yesterday morning Normocytic normochromic anemia: Hemoglobin decreased to 8.2 Hemoglobin was on 12/05/2024 9.2, Positive iron Deficiency start the patient on IV iron TARYN likely secondary to renal tubular stasis: Resolved NS at 80 mL/hour. Hyponatremia-resolved Monitor Hep-Lock IV fluids Code status: Full code DVT prophylaxis: SCDs Analgesia/sedation: Morphine Line/tube: PIV GI prophylaxis: None Nutrition: 75 carb controlled diet. NPO after midnight. PT: Ordered Prognosis: Guarded Date of Service: December 12, 2024 Billing Provider: PROSPER SAAVEDRA MD Common Visit Codes: [id number] INP/OBS CARE(HIGH) PROSPER SAAVEDRA MD December 12, 2024 10:17
[2024-12-12] MEDS ORDERED: morphine 4 MG/ML inj SYRINge IV PRN (20:16)
[2024-12-12] MEDS: morphine 4 MG/ML inj SYRINge IV PRN (21:27)
[2024-12-13 06:00] VITALS: BP 121/63; PULSE 83; RESP 18; TEMP 99.6; O2SAT 97
[2024-12-13 06:06] LABS: BASOPHILS % (AUTO) 0.3 % (0-1); EOSINOPHILS # (AUTO) 0.1 X10'3 (0-0.9); HEMATOCRIT 25.6 % (42.0-52.0); HEMOGLOBIN 8.7 g/dl (14.0-17.9); LYMPHOCYTES # (AUTO) 1.3 X10'3 (1.1-4.8); LYMPHOCYTES % (AUTO) 13.9 % (21-51); MEAN CORPUSCULAR HEMOGLOBIN 27.8 PG (27.0-31.0); MEAN CORPUSCULAR VOLUME 81.8 FL (78-98); MEAN PLATELET VOLUME 7.9 FL (7.4-10.4); MONOCYTES # (AUTO) 0.8 X10'3 (0-0.9); MONOCYTES % (AUTO) 8.2 % (2-12); NEUTROPHILS # (AUTO) 7.2 X10'3 (1.8-7.7); NEUTROPHILS % (AUTO) 76.6 % (42-75); PLATELET COUNT 296 X10'3 (140-440); RED BLOOD COUNT 3.13 X10'6 (4.70-6.10); RED CELL DISTRIBUTION WIDTH 14.7 % (11.5-14.5); WHITE BLOOD COUNT 9.4 X10'3 (4.5-11.0)
[2024-12-13 06:32] LABS: ALANINE AMINOTRANSFERASE 11 U/L (12-78); ALBUMIN 1.6 G/DL (3.4-5.0); ALBUMIN/GLOBULIN RATIO 0.2 (1.1-1.5); ALKALINE PHOSPHATASE 92 IU/L (46-116); ANION GAP 7 (8-16); ASPARTATE AMINO TRANSFERASE 25 U/L (10-37); BILIRUBIN,TOTAL 0.3 MG/DL (0.1-1.0); BLOOD UREA NITROGEN 19 MG/DL (7-18); BUN/CREATININE RATIO 8.8 (10.0-20.0); CHLORIDE 104 MMOL/L (99-107); CREATININE 2.16 MG/DL (0.60-1.10); GLUCOSE 151 MG/DL (70-104); POTASSIUM 4.3 MMOL/L (3.5-5.1); SODIUM 135 MMOL/L (135-145); TOTAL CARBON DIOXIDE 24.4 MMOL/L (24-32); TOTAL PROTEIN 8.3 G/DL (6.4-8.2); eCRCL 41 ML/MIN; eGFR 32 ML/MIN
[2024-12-13 08:00] VITALS: RESP 18; O2SAT 97
[2024-12-13 11:20] VITALS: BP 115/60; PULSE 83; RESP 19; TEMP 99.5; O2SAT 99
--- NOTE | 2024-12-13 12:22 | PROGRESS NOTE ---
Daily Progress Note Providers to CC ~ Antibiotic Timeout Antibiotic Ordered?: No Subjective No acute events overnight. Patient examined at bedside. No new complaints, not in acute distress. Patient denies chest pain, sob, palpitations, abdominal pain, n/v/d. Vss, labs notable for significant TARYN, uptrending Hgb after 1 unit of PRBC transfusion yesterday. IVF started, vanco/zosyn discontinued. 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 Hyperglycemia/hypoglycemia protocol in place. Medium dose short-acting insulin sliding scale on place. TARYN likely secondary to renal tubular stasis: Resolved NS at 80 mL/hour. Hyponatremia-resolved Monitor Hep-Lock IV fluids Code status: Full code DVT prophylaxis: SCDs Date of Service: December 13, 2024 Billing Provider: RAYNA LUU Common Visit Codes: [id number] INP/OBS CARE(HIGH) RAYNA LUU December 13, 2024 12:22
[2024-12-13] MEDS: lactose-reduced food (Ensure Enlive) - 237ml bottle PO SCH (12:43)
[2024-12-13] MEDS: normal saline 500ml IV soln 500 ML IV ONE ×2 (12:43→22:45)
[2024-12-13] MEDS: magnesium hydroxide 30ml (MOM) UD suspension PO PRN (14:27)
[2024-12-13] MEDS: metoclopramide 5 mg/ml inj IV PRN (16:18)
[2024-12-13 18:30] VITALS: BP 127/59; PULSE 71; RESP 19; TEMP 98.4; O2SAT 98
[2024-12-13] MEDS: CEFEPIME 2gm in D5W 50mL 50 ML IV SCH (21:32)
[2024-12-13 22:00] VITALS: BP 144/87; PULSE 76; RESP 21; TEMP 98.5; O2SAT 95
[2024-12-14 04:56] LABS: BASOPHILS % (AUTO) 0.3 % (0-1); EOSINOPHILS # (AUTO) 0.1 X10'3 (0-0.9); EOSINOPHILS % (AUTO) 0.9 % (0-6); HEMATOCRIT 24.4 % (42.0-52.0); HEMOGLOBIN 8.3 g/dl (14.0-17.9); LYMPHOCYTES # (AUTO) 1.3 X10'3 (1.1-4.8); LYMPHOCYTES % (AUTO) 13.8 % (21-51); MEAN CORPUSCULAR HGB CONC 33.9 g/dL (33.0-36.5); MEAN CORPUSCULAR VOLUME 82.6 FL (78-98); MEAN PLATELET VOLUME 7.8 FL (7.4-10.4); MONOCYTES # (AUTO) 0.8 X10'3 (0-0.9); MONOCYTES % (AUTO) 8.1 % (2-12); NEUTROPHILS # (AUTO) 7.4 X10'3 (1.8-7.7); NEUTROPHILS % (AUTO) 76.9 % (42-75); PLATELET COUNT 361 X10'3 (140-440); RED BLOOD COUNT 2.96 X10'6 (4.70-6.10); RED CELL DISTRIBUTION WIDTH 14.7 % (11.5-14.5); WHITE BLOOD COUNT 9.6 X10'3 (4.5-11.0)
[2024-12-14 05:12] LABS: ALANINE AMINOTRANSFERASE 13 U/L (12-78); ALBUMIN 1.6 G/DL (3.4-5.0); ALBUMIN/GLOBULIN RATIO 0.2 (1.1-1.5); ALKALINE PHOSPHATASE 90 IU/L (46-116); ANION GAP 5 (8-16); ASPARTATE AMINO TRANSFERASE 17 U/L (10-37); BILIRUBIN,TOTAL 0.2 MG/DL (0.1-1.0); BLOOD UREA NITROGEN 25 MG/DL (7-18); BUN/CREATININE RATIO 10.5 (10.0-20.0); CHLORIDE 107 MMOL/L (99-107); CREATININE 2.38 MG/DL (0.60-1.10); GLUCOSE 110 MG/DL (70-104); POTASSIUM 4.5 MMOL/L (3.5-5.1); SODIUM 137 MMOL/L (135-145); TOTAL CARBON DIOXIDE 24.8 MMOL/L (24-32); TOTAL PROTEIN 8.2 G/DL (6.4-8.2); eCRCL 37 ML/MIN; eGFR 29 ML/MIN
[2024-12-14 06:00] VITALS: BP 139/56; PULSE 75; RESP 16; TEMP 97.6; O2SAT 99
[2024-12-14] MEDS: LidoCAINE 2% Topical Jelly 11mL syringe (UROJET) TOP ONE (07:30)
[2024-12-14 08:00] VITALS: RESP 16; O2SAT 98
[2024-12-14] MEDS: NUT.TX.IMP.RENAL FXN,LAC-REDUC (Nepro) 237 ML VANILLA PO SCH (08:00)
[2024-12-14 11:00] VITALS: BP 130/85; PULSE 70; RESP 16; TEMP 97.6; O2SAT 96
[2024-12-14 12:04] LABS: CREATINE KINASE 180 U/L (39-308)
--- NOTE | 2024-12-14 12:17 | RADIOLOGY REPORT ---
INDICATION: TARYN - ruleout hydronephrosis TECHNIQUE: Multiple real-time sonographic images of the kidneys and urinary bladder were obtained. COMPARISON: None FINDINGS: The right kidney measures 12.5 cm in length. The right renal echotexture, contour and cortical thick ness are within normal limits. No hydronephrosis or large masses/calculi are seen. The left kidney measures 12.5 cm in length. The left renal echotexture, contour, and cortical thickne ss are within normal limits. No hydronephrosis or large masses/calculi are seen. No echogenic intraluminal masses are seen in the bladder. No urinary bladder wall abnormality. Bilat eral ureteral jets are not visualized Prevoid residual measures 451 cc. IMPRESSION: 1. No hydronephrosis.
--- NOTE | 2024-12-14 15:15 | PROGRESS NOTE ---
Daily Progress Note Providers to CC ~ Antibiotic Timeout Antibiotic Ordered?: No Subjective No acute events overnight. Patient examined at bedside. No new complaints, not in acute distress. Patient denies chest pain, sob, palpitations, abdominal pain, n/v/d. Low-grade fever yesterday resolved today. Vss, labs notable for persistently uptrending creatinine. Was started on IVF yesterday and continued. Renal US unremarkable. Consulted heel blacker Dr. Ball who will follow. 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 Renal US unremarkable. Consulted Dr. Ball Phantom pain -prn analgesic, hold gabapentin NIDDM Hyperglycemia Continue Accu-Cheks and insulin sliding scale A1c 6.6. Hyperglycemia/hypoglycemia protocol in place. Medium dose short-acting insulin sliding scale on place. TARYN likely secondary to renal tubular stasis: Resolved NS at 80 mL/hour. Hyponatremia-resolved Monitor Hep-Lock IV fluids Code status: Full code DVT prophylaxis: SCDs Date of Service: December 14, 2024 Billing Provider: RAYNA LUU Common Visit Codes: [id number] INP/OBS CARE(HIGH) RAYNA LUU December 14, 2024 15:15
[2024-12-14 18:00] VITALS: BP 164/82; PULSE 88; RESP 17; TEMP 98; O2SAT 99
--- NOTE | 2024-12-14 19:25 | CONSULTATION REPORT - RESIDENT ---
Consult Providers to CC Resident Creating Document: PALOMAPaulinaBALDEMAR ROSE History of Present Illness Reason for Admit\Complaint: Osteomyelitis History of Present Illness A 54 year old male had foot osteomyelitis and had below-knee amputation Dr. Cerna. Patient had baseline creatinine of 1.2 on admission which trended up to 2.38 in a span of 2 days. Nephrology was consulted for a sudden increase in creatinine and further evaluation. On examination patient appeared dry and volume depleted. He had urine electrolytes which showed FENA 4.2% and had been on multiple antibiotics in the past. This could probably be secondary to acute interstitial nephritis, causing ATN. Patient will need hydration which could possibly cause further improvement. Allergies: Coded Allergies: No Known Allergies (Unverified , 12/05/24) Home Medications Home Medications Active Reported Gabapentin 400 Mg Capsule 1 Cap PO TID Bactrim SS Tablet* (Trimethoprim/Sulfamethoxazole) 400 Mg-80 Mg Tablet 1 Tab PO Q12H 10 Days Augmentin Xr 1,000-62.5 Tab (Amoxicillin/Clavulanate Potassium) 1 Each Tab.sr.12h 2 Tab PO Q12H 10 Days with food Past Medical History Past Medical History Diabetes mellitus, as per patient metformin make him sick reason for which he stopped taking it. He reports diarrhea, nausea. 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 Past Surgical History Surgical History Comment Right ankle orthopedic surgery 2020. Amputation of the right 1st toe on April, due to osteomyelitis. Family History Family History: Patient reports no known family medical history. 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 All negative except for pertinent positive HPI. Exam Vitals: Vital Signs Date Time Temp Pulse Resp B/P (MAP) Pulse Ox O2 Delivery O2 Flow Rate FiO2 12/14/24 11:00 97.6 70 16 130/85 (100) 96 Room Air 12/13/24 20:00 0.0 General: General: Well alert, well oriented, not confused, not agitated, not in acute distress, well cooperated during the physical. HEENT: Conjunctive are pink, sclerae clear, no icterus, pupil is equal in both sides, reactive to light, no ear discharge, no pharyngeal erythema or an edema. Neck: Supple, no JVD, no lymphadenopathy and thyromegaly. Chest: Equal air entry on both lungs, no additional sounds no rhonchi no wheezing at the moment. Cardiovascular: S1-S2 regular sinus rhythm and, regular rate, no gallops, no rubs, no murmurs Abdomen: No visible peristalsis, Bowel sounds present on auscultation, soft, nontender, no guarding, no rigidity Extremities: Presence of deformity at the level of the right ankle, redness and presence of two wounds at the level of the right ankle, 5 x 5 cm in diameter, foul-smelling. Central Nervous System: No focal neurological deficits, no motor or sensory weakness in all 4 extremities, could move all 4 extremities, 2+ deep tendon reflexes, negative Babinski. Musculoskeletal: Joint deformity in the right ankle, no scoliosis or back tenderness. Diagnostic Data Last Recorded Lab Results: 12/14/2442512/14/246 Diagnostic Data: Laboratory Tests Test 12/10/24 08:23 Prothrombin Time 10.7 SECONDS (9.0-12.0) INR International Normalized Ratio 1.0 INR Coagulation Comments Additional Plan Intrarenal TARYN, Likely Medication-Induced (Acute Interstitial Nephritis) Creatinine increased to 2.38. Findings (urine Na 159, FeNa 4.2%, urine osmolality 585, elevated ferritin) suggest intrarenal TARYN. Urine eosinophils raise suspicion for acute interstitial nephritis (AIN) secondary to recent vancomycin and zosyn (now discontinued). Continue IV fluids (NS at 125 mL/hour). Avoid nephrotoxic agents (e.g., NSAIDs). Monitor renal function daily with RFTs and urine studies. consider renal biopsy if no improvement. Follow-Up Recommendations Monitor daily renal panel, hemoglobin, and glucose levels. Renal ultrasound: Normal Reassess for signs of recurrent infection, worsening TARYN, or anemia. Resolved tubular stasis. IV fluids increased to 150 cc/hour. Left Foot Osteomyelitis Chronic infection with positive cultures showing group intrapatient organisms. Managed with IV antibiotics. History of right below-knee amputation (BKA) by Dr. Cerna. Continue IV antibiotics as per infectious disease recommendations. Monitor for systemic infection or wound complications. Consult wound care as needed for dressing management. Normocytic Anemia (Anemia of Chronic Disease) Hemoglobin 8.3, hematocrit 24.4. Likely multifactorial, including chronic disease and recent blood loss. Improved after PRBC transfusion on 12/13. Elevated ferritin (535) consistent with inflammation. Monitor hemoglobin and hematocrit daily. Defer iron therapy due to high ferritin. Evaluate need for additional transfusions based on clinical status. Consider erythropoiesis-stimulating agents if anemia persists. Phantom Pain Persistent post-right BKA phantom pain. Gabapentin previously held due to renal function concerns. Continue PRN analgesics. Resume gabapentin cautiously if pain persists and renal function stabilizes. Non-Insulin Dependent Diabetes Mellitus (NIDDM) A1c 6.6. Hyperglycemia managed with Accu-Chek monitoring and medium-dose insulin sliding scale. Continue current insulin regimen. Adjust based on glucose trends. Maintain hyperglycemia and hypoglycemia protocols. Resolved Hyponatremia Sodium levels stabilized without ongoing abnormalities. Continue monitoring sodium levels via metabolic panels. Code Status: Full code DVT Prophylaxis: SCDs Anuj Chavira MD Internal Medicine Resident, PGY-1 Attending Note: Progressive worsening of renal function.He appears somewhat volume depleted. He would benefit with iv fluids. He is also running a risk of Acute interstitial nephritis. Very frustrated man in general and medley of complaints about his misfortunes. Unfortunately only so much can be done. Goal directed care to get the renal function managed conservativelywith hydration and proper use of antibiotics, if needed prednisone to tackle in the forthcoming days to avoid dialysis. If despite hydration, if the renal function continues to worsen, will consider prednisone for a short course. CAre plan discussed with resident. patient seen and examined. Franco Fields MD Nephrology Date of Service: December 14, 2024 Billing Provider: FRANCO FIELDS MD, GAURAV, RES December 14, 2024 19:25 FRANCO FIELDS MD December 15, 2024 07:43
[2024-12-14 20:00] VITALS: RESP 16; O2SAT 97
[2024-12-14] MEDS: oxyCODONE/APAP 5-325mg tablet PO PRN (21:29)
[2024-12-14] MEDS: EPOETIN ALFA-EPBX 20,000 UNIT/ML 1 ML MDV SQ ONE (21:35)
[2024-12-14 22:57] VITALS: BP 154/73; PULSE 84; RESP 16; TEMP 99.3; O2SAT 97
[2024-12-15 02:52] LABS: CREATININE,URINE RANDOM 43.1 MG/DL; TOTAL PROTEIN,URINE RANDOM 30.8 MG/DL
[2024-12-15] MEDS: normal saline 1000ml 1,000 ML IV SCH (04:49)
[2024-12-15 05:00] LABS: BASOPHILS % (AUTO) 0.5 % (0-1); EOSINOPHILS # (AUTO) 0.1 X10'3 (0-0.9); HEMOGLOBIN 8.1 g/dl (14.0-17.9); LYMPHOCYTES # (AUTO) 1.1 X10'3 (1.1-4.8); LYMPHOCYTES % (AUTO) 11.5 % (21-51); MEAN CORPUSCULAR HEMOGLOBIN 27.8 PG (27.0-31.0); MEAN CORPUSCULAR HGB CONC 33.7 g/dL (33.0-36.5); MEAN CORPUSCULAR VOLUME 82.4 FL (78-98); MEAN PLATELET VOLUME 7.7 FL (7.4-10.4); MONOCYTES # (AUTO) 0.7 X10'3 (0-0.9); MONOCYTES % (AUTO) 6.6 % (2-12); NEUTROPHILS # (AUTO) 7.9 X10'3 (1.8-7.7); NEUTROPHILS % (AUTO) 80.4 % (42-75); PLATELET COUNT 400 X10'3 (140-440); RED BLOOD COUNT 2.91 X10'6 (4.70-6.10); RED CELL DISTRIBUTION WIDTH 14.7 % (11.5-14.5); WHITE BLOOD COUNT 9.9 X10'3 (4.5-11.0)
[2024-12-15 05:14] LABS: ALANINE AMINOTRANSFERASE 14 U/L (12-78); ALBUMIN 1.6 G/DL (3.4-5.0); ALBUMIN/GLOBULIN RATIO 0.2 (1.1-1.5); ALKALINE PHOSPHATASE 86 IU/L (46-116); ANION GAP 5 (8-16); ASPARTATE AMINO TRANSFERASE 16 U/L (10-37); BILIRUBIN,TOTAL 0.3 MG/DL (0.1-1.0); BLOOD UREA NITROGEN 26 MG/DL (7-18); BUN/CREATININE RATIO 10.4 (10.0-20.0); CHLORIDE 108 MMOL/L (99-107); CREATININE 2.51 MG/DL (0.60-1.10); GLUCOSE 116 MG/DL (70-104); LACTATE DEHYDROGENASE 137 U/L (85-227); POTASSIUM 4.3 MMOL/L (3.5-5.1); SODIUM 138 MMOL/L (135-145); TOTAL CARBON DIOXIDE 25.2 MMOL/L (24-32); TOTAL PROTEIN 8.3 G/DL (6.4-8.2); eCRCL 36 ML/MIN; eGFR 27 ML/MIN
[2024-12-15 06:00] VITALS: BP 131/73; PULSE 72; RESP 12; TEMP 98; O2SAT 96
[2024-12-15 06:38] LABS: HIV ANTIBODY 1&2 RAPID NON-REACTIVE (Neg)
[2024-12-15 08:00] VITALS: RESP 16; O2SAT 98
[2024-12-15 10:00] VITALS: BP 119/65; PULSE 77; RESP 17; TEMP 98.5; O2SAT 96
--- NOTE | 2024-12-15 13:34 | PROGRESS NOTE ---
Daily Progress Note Providers to CC ~ Antibiotic Timeout Antibiotic Ordered?: No Subjective No acute events overnight. Patient examined at bedside. No new complaints, not in acute distress. Patient denies chest pain, sob, palpitations, abdominal pain, n/v/d. Low-grade fever yesterday resolved today. Vss, labs notable for persistently uptrending creatinine. Continued on IVF with increased rate. Renal US unremarkable. 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 Renal US unremarkable. Consulted Dr. Ball -12/15: uptrending cr, continued on IVF with increased rate Phantom pain -prn analgesic, hold gabapentin NIDDM Hyperglycemia Continue Accu-Cheks and insulin sliding scale A1c 6.6. Hyperglycemia/hypoglycemia protocol in place. Medium dose short-acting insulin sliding scale on place. Hyponatremia-resolved Monitor Hep-Lock IV fluids Code status: Full code DVT prophylaxis: SCDs Date of Service: December 15, 2024 Billing Provider: RAYNA LUU Common Visit Codes: [id number] INP/OBS CARE(HIGH) RAYNA LUU December 15, 2024 13:34
--- NOTE | 2024-12-15 16:29 | PROGRESS NOTE- Residence ---
Progress Note - Resident Providers to CC Resident Creating Document: MILTON TEJADA RES ~ Antibiotic Timeout Antibiotic Ordered?: Yes Subjective Patient was seen and examined at bedside, patient was slightly frustrated regarding the ongoing process. Tried counseling him and explained him that his kidney injury could likely be secondary to dehydration and would need few more days for recovery. Objective Vital Signs Date Time Temp Pulse Resp B/P (MAP) Pulse Ox O2 Delivery O2 Flow Rate FiO2 12/15/24 10:00 98.5 77 17 119/65 (83) 96 Room Air 12/15/24 08:00 0.0 Result Diagram: 12/15/24 04312/15/24 0430 General: Well alert, well oriented, not confused, not agitated, not in acute distress, well cooperated during the physical. HEENT: Conjunctive are pink, sclerae clear, no icterus, pupil is equal in both sides, reactive to light, no ear discharge, no pharyngeal erythema or an edema. Neck: Supple, no JVD, no lymphadenopathy and thyromegaly. Chest: Equal air entry on both lungs, no additional sounds no rhonchi no wheezing at the moment. Cardiovascular: S1-S2 regular sinus rhythm and, regular rate, no gallops, no rubs, no murmurs Abdomen: No visible peristalsis, Bowel sounds present on auscultation, soft, nontender, no guarding, no rigidity Extremities: Dressing in place Central Nervous System: No focal neurological deficits, no motor or sensory weakness in all 4 extremities, could move all 4 extremities, 2+ deep tendon reflexes, negative Babinski. Coagulation Studies Laboratory Tests Test 12/10/24 08:23 Prothrombin Time 10.7 SECONDS (9.0-12.0) INR International Normalized Ratio 1.0 INR Coagulation Comments Advance Care Planning Advanced Care plannin - 30 Minutes Assessment Assessment A 54 year old male had foot osteomyelitis and had below-knee amputation Dr. Cerna. Patient had baseline creatinine of 1.2 on admission which trended up to 2.38 in a span of 2 days. Nephrology was consulted for a sudden increase in creatinine and further evaluation. On examination patient appeared dry and volume depleted. He had urine electrolytes which showed FENA 4.2% and had been on multiple antibiotics in the past. This could probably be secondary to acute interstitial nephritis, causing ATN. Patient will need hydration which could possibly cause further improvement. Plan Plan Intrarenal TARYN, Likely Medication-Induced (Acute Interstitial Nephritis) Creatinine increased to 2.51 today, Findings (urine Na 159, FeNa 4.2%, urine osmolality 585, elevated ferritin) suggest intrarenal TARYN. Urine eosinophils raise suspicion for acute interstitial nephritis (AIN) secondary to recent vancomycin and zosyn (now discontinued). Continue IV fluids (NS at 150 mL/hour). Avoid nephrotoxic agents (e.g., NSAIDs). Monitor renal function daily with RFTs and urine studies. consider renal biopsy if no improvement. Follow-Up Recommendations Monitor daily renal panel, hemoglobin, and glucose levels. Renal ultrasound: Normal Reassess for signs of recurrent infection, worsening TARYN, or anemia. IV fluids to be continued at 150 cc/hour. Hepatitis B, C, HIV, ASO titers pending Repeat urine lytes pending Serum and protein electrophoresis pending Left Foot Osteomyelitis Chronic infection with positive cultures showing group intrapatient organisms. Managed with IV antibiotics, daptomycin. History of right below-knee amputation (BKA) by Dr. Cerna. Continue IV antibiotics as per infectious disease recommendations. Monitor for systemic infection or wound complications. Consult wound care as needed for dressing management. Normocytic Anemia (Anemia of Chronic Disease) Hemoglobin 8.1 hematocrit 24 Likely multifactorial, including chronic disease and recent blood loss. Improved after PRBC transfusion on 12/13. Elevated ferritin (535) consistent with inflammation. Monitor hemoglobin and hematocrit daily. Defer iron therapy due to high ferritin. Evaluate need for additional transfusions based on clinical status. Erythropoiesis-stimulating agents. Phantom Pain Persistent post-right BKA phantom pain. Gabapentin previously held due to renal function concerns. Continue PRN analgesics. Resume gabapentin cautiously if pain persists and renal function stabilizes. Non-Insulin Dependent Diabetes Mellitus (NIDDM) A1c 6.6. Hyperglycemia managed with Accu-Chek monitoring and medium-dose insulin sliding scale. Continue current insulin regimen. Adjust based on glucose trends. Maintain hyperglycemia and hypoglycemia protocols. Resolved Hyponatremia Sodium levels stabilized without ongoing abnormalities. Continue monitoring sodium levels via metabolic panels. Code Status: Full code DVT Prophylaxis: SCDs Milton Tejada MD Internal Medicine Resident, PGY-1 Attending Note: Patient sleeping. not too keen in talking to us today when I rounded with resident though he heard our voice. creatinine higher. continuously in negative fluid balance. Incrase the fluid back to 150 cc per hour please. 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 will hope that there would be a favorable response with renal function in a day or two. Franco Fields MD Nephrology Date of Service: December 15, 2024 Billing Provider: FRANCO FIELDS MD, GAURAV, RES December 15, 2024 16:29 FRANCO FIELDS MD December 15, 2024 17:20
[2024-12-15 18:00] VITALS: BP 150/67; PULSE 74; RESP 17; TEMP 99; O2SAT 98
[2024-12-15 20:00] VITALS: RESP 17; O2SAT 98
[2024-12-15 22:00] VITALS: BP 163/69; PULSE 76; RESP 16; TEMP 97.9; O2SAT 97
[2024-12-16 05:07] LABS: BASOPHILS % (AUTO) 0.4 % (0-1); EOSINOPHILS # (AUTO) 0.1 X10'3 (0-0.9); EOSINOPHILS % (AUTO) 0.8 % (0-6); HEMATOCRIT 23.1 % (42.0-52.0); HEMOGLOBIN 7.8 g/dl (14.0-17.9); LYMPHOCYTES # (AUTO) 1.6 X10'3 (1.1-4.8); LYMPHOCYTES % (AUTO) 20.1 % (21-51); MEAN CORPUSCULAR HEMOGLOBIN 27.8 PG (27.0-31.0); MEAN CORPUSCULAR HGB CONC 33.7 g/dL (33.0-36.5); MEAN CORPUSCULAR VOLUME 82.4 FL (78-98); MEAN PLATELET VOLUME 7.8 FL (7.4-10.4); MONOCYTES # (AUTO) 0.6 X10'3 (0-0.9); MONOCYTES % (AUTO) 7.8 % (2-12); NEUTROPHILS # (AUTO) 5.7 X10'3 (1.8-7.7); NEUTROPHILS % (AUTO) 70.9 % (42-75); PLATELET COUNT 384 X10'3 (140-440); RED CELL DISTRIBUTION WIDTH 15.2 % (11.5-14.5); WHITE BLOOD COUNT 8.1 X10'3 (4.5-11.0)
[2024-12-16 05:13] LABS: HEPATITIS C VIRUS ANTIBODY Non Reactive (Non Reactive)
[2024-12-16 05:33] LABS: ALANINE AMINOTRANSFERASE 16 U/L (12-78); ALBUMIN 1.6 G/DL (3.4-5.0); ALBUMIN/GLOBULIN RATIO 0.2 (1.1-1.5); ALKALINE PHOSPHATASE 91 IU/L (46-116); ANION GAP 8 (8-16); ASPARTATE AMINO TRANSFERASE 14 U/L (10-37); BILIRUBIN,TOTAL 0.2 MG/DL (0.1-1.0); BLOOD UREA NITROGEN 25 MG/DL (7-18); BUN/CREATININE RATIO 10.2 (10.0-20.0); CALCIUM 8.1 MG/DL (8.5-10.1); CHLORIDE 109 MMOL/L (99-107); CREATININE 2.45 MG/DL (0.60-1.10); GLUCOSE 121 MG/DL (70-104); POTASSIUM 4.1 MMOL/L (3.5-5.1); SODIUM 140 MMOL/L (135-145); TOTAL CARBON DIOXIDE 22.9 MMOL/L (24-32); TOTAL PROTEIN 8.1 G/DL (6.4-8.2); eCRCL 36 ML/MIN; eGFR 28 ML/MIN
[2024-12-16 06:00] VITALS: BP 91/56; PULSE 65; RESP 14; TEMP 98.5; O2SAT 96
[2024-12-16 08:00] VITALS: RESP 18; O2SAT 96
[2024-12-16 10:00] VITALS: BP 125/63; PULSE 66; RESP 17; TEMP 97.9; O2SAT 97
[2024-12-16 11:16] LABS: ANTISTREPTOLYSIN O AB 592.2 IU/mL (0.0-200.0); COMPLEMENT C3, SERUM 178 mg/dL (82-167); COMPLEMENT C4, SERUM 32 mg/dL (12-38); HBSAG SCREEN Negative (Negative)
[2024-12-16 13:29] VITALS: RESP 18
[2024-12-16] MEDS ORDERED: ASPI81TA52 PO (13:45)
[2024-12-16] MEDS ORDERED: PER5325T PO (13:51)
[2024-12-16] MEDS ORDERED: ONDA-243 PO (13:51)
[2024-12-16] MEDS ORDERED: DOCU100C40 PO (13:51)
[2024-12-16 15:11] LABS: ANTINUCLEAR ANTIBODIES Negative (Negative)
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
--- NOTE | 2024-12-16 17:40 | PROGRESS NOTE- Residence ---
Progress Note - Resident Providers to CC Resident Creating Document: MILTON CHAVIRA RES ~ Antibiotic Timeout Antibiotic Ordered?: Yes Subjective Patient was seen and examined at bedside, no acute overnight symptoms. Creatinine has improved to 2.45 today. Objective Vital Signs Date Time Temp Pulse Resp B/P (MAP) Pulse Ox O2 Delivery O2 Flow Rate FiO2 12/16/24 13:29 18 12/16/24 10:00 97.9 66 125/63 (83) 97 Room Air 12/15/24 08:00 0.0 Result Diagram: 12/16/2440412/16/24404 General: Well alert, well oriented, not confused, not agitated, not in acute distress, well cooperated during the physical. HEENT: Conjunctive are pink, sclerae clear, no icterus, pupil is equal in both sides, reactive to light, no ear discharge, no pharyngeal erythema or an edema. Neck: Supple, no JVD, no lymphadenopathy and thyromegaly. Chest: Equal air entry on both lungs, no additional sounds no rhonchi no wheezing at the moment. Cardiovascular: S1-S2 regular sinus rhythm and, regular rate, no gallops, no rubs, no murmurs Abdomen: No visible peristalsis, Bowel sounds present on auscultation, soft, nontender, no guarding, no rigidity Extremities: Dressing in place Central Nervous System: No focal neurological deficits, no motor or sensory weakness in all 4 extremities, could move all 4 extremities, 2+ deep tendon reflexes, negative Babinski. Coagulation Studies Laboratory Tests Test 12/10/24 08:23 Prothrombin Time 10.7 SECONDS (9.0-12.0) INR International Normalized Ratio 1.0 INR Coagulation Comments Advance Care Planning Advanced Care plannin - 30 Minutes Assessment Assessment A 54 year old male had foot osteomyelitis and had below-knee amputation Dr. Cerna. Patient had baseline creatinine of 1.2 on admission which trended up to 2.38 in a span of 2 days. Nephrology was consulted for a sudden increase in creatinine and further evaluation. On examination patient appeared dry and volume depleted. He had urine electrolytes which showed FENA 4.2% and had been on multiple antibiotics in the past. This could probably be secondary to acute interstitial nephritis, causing ATN. Patient will need hydration which could possibly cause further improvement. Plan Plan Intrarenal TARYN, Likely Medication-Induced (Acute Interstitial Nephritis) Creatinine improved to 2.45, Findings (urine Na 159, FeNa 4.2%, urine osmolality 585, elevated ferritin) suggest intrarenal TARYN. Urine eosinophils raise suspicion for acute interstitial nephritis (AIN) secondary to recent vancomycin and zosyn (now discontinued). Continue IV fluids (NS at 150 mL/hour). Avoid nephrotoxic agents (e.g., NSAIDs). Monitor renal function daily with RFTs and urine studies. consider renal biopsy if no improvement. Follow-Up Recommendations Monitor daily renal panel, hemoglobin, and glucose levels. Renal ultrasound: Normal Reassess for signs of recurrent infection, worsening TARYN, or anemia. IV fluids to be continued at 150 cc/hour. Hepatitis B, C, HIV, negative, ASO titers are high Repeat urine lytes pending Serum and protein electrophoresis pending Left Foot Osteomyelitis Chronic infection with positive cultures showing group intrapatient organisms. Managed with IV antibiotics. History of right below-knee amputation (BKA) by Dr. Cerna. Continue IV antibiotics as per infectious disease recommendations. Monitor for systemic infection or wound complications. Consult wound care as needed for dressing management. Normocytic Anemia (Anemia of Chronic Disease) Hemoglobin 7.8 hematocrit 23.1 Likely multifactorial, including chronic disease and recent blood loss. Improved after PRBC transfusion on 12/13. Elevated ferritin (535) consistent with inflammation. Monitor hemoglobin and hematocrit daily. Defer iron therapy due to high ferritin. Evaluate need for additional transfusions based on clinical status. Erythropoiesis-stimulating agents. Phantom Pain Persistent post-right BKA phantom pain. Gabapentin previously held due to renal function concerns. Continue PRN analgesics. Resume gabapentin cautiously if pain persists and renal function stabilizes. Non-Insulin Dependent Diabetes Mellitus (NIDDM) A1c 6.6. Hyperglycemia managed with Accu-Chek monitoring and medium-dose insulin sliding scale. Continue current insulin regimen. Adjust based on glucose trends. Maintain hyperglycemia and hypoglycemia protocols. Resolved Hyponatremia Sodium levels stabilized without ongoing abnormalities. Continue monitoring sodium levels via metabolic panels. Code Status: Full code DVT Prophylaxis: Leslee Chavira MD Internal Medicine Resident, PGY-1 Date of Service: December 16, 2024 Billing Provider: YEN OATES III DO MILTON CHAVIRA, RES December 16, 2024 17:40
[2024-12-17 13:43] LABS: ATYPICAL PANCA <1:20 titer (Neg:<1:20); CYTOPLASMIC (C-ANCA) <1:20 titer (Neg:<1:20); PERINUCLEAR (P-ANCA) <1:20 titer (Neg:<1:20)
== END 2024-12-16 14:51 | disposition home or self-care (01) | DRG 305 ==
LOC: ER 17:18 → ED HOLD 19:53 → EDBEDREQ 20:37 → ORTHO 4S 21:37 → SUR 3N 12-07 00:52
PROVIDERS: ADMIT Internal Medicine Sleep Medicine; ATTEND Internal Medicine
PROC: B42G1ZZ Computerized Tomography (CT Scan) of Left Lower Extremity Arteries using Low Osmolar Contrast (ICD-10-PCS; 2024-12-05)
PROC: 0Y6H0Z3 Detachment at Right Lower Leg, Low, Open Approach (ICD-10-PCS; principal; 2024-12-12)
PROC: 30233N1 Transfusion of Nonautologous Red Blood Cells into Peripheral Vein, Percutaneous Approach (ICD-10-PCS; 2024-12-12)
PROC: 3E0T3BZ Introduction of Anesthetic Agent into Peripheral Nerves and Plexi, Percutaneous Approach (ICD-10-PCS; 2024-12-12)
DX: E11.69 Type 2 diabetes mellitus with other specified complication (principal); N17.9 Acute kidney failure, unspecified; M86.171 Other acute osteomyelitis, right ankle and foot; E87.1 Hypo-osmolality and hyponatremia; D63.8 Anemia in other chronic diseases classified elsewhere; E11.610 Type 2 diabetes mellitus with diabetic neuropathic arthropathy; E11.65 Type 2 diabetes mellitus with hyperglycemia; E61.1 Iron deficiency; M62.838 Other muscle spasm; M86.172 Other acute osteomyelitis, left ankle and foot; E11.621 Type 2 diabetes mellitus with foot ulcer; Z16.24 Resistance to multiple antibiotics; T36.8X5A Adverse effect of other systemic antibiotics, initial encounter; L03.115 Cellulitis of right lower limb; L97.829 Non-pressure chronic ulcer of other part of left lower leg with unspecified severity; Z79.899 Other long term (current) drug therapy; Y92.89 Other specified places as the place of occurrence of the external cause; Z85.72 Personal history of non-Hodgkin lymphomas
CPT/HCPCS: 36415; 36430; 71045; 73700; 73723; 76770; 80048; 80053; 80061; 80202; 81001; 82550; 82570; 82728; 82945; 82948; 83036; 83540; 83550; 83605; 83615; 83735; 83930; 83935; 84133; 84145; 84155; 84156; 84165; 84166; 84300; 84540; 85025; 85610; 85651; 86038; 86060; 86140; 86160; 86256; 86703; 86803; 86885; 86900; 86901; 86920; 87040; 87070; 87077; 87081; 87186; 87207; 87340; 87522; 93005; 96365; 96368; 97110; 97116; 97161; 97530; 97535; 97542; 99285; A4618; A4649; A6213; A6253; A6258; A6446; A6449; A7000; G0378; J0131; J0690; J0692; J0735; J0780; J1756; J1815; J2250; J2270; J2405; J2543; J2704; J2765; J2795; J3010; J3370; J7030; J7040; P9016; Q4081; Q9967

== ENCOUNTER 2024-12-27 23:25 | Emergency (ER) | payer MEDICAID ==
[~2024-12-27] VITALS: Ht 177.8 cm; Wt 105.6 kg
[~2024-12-27 23:25] MED LIST changes: +ASPI81TA52 PO; +DOCU100C40 PO; -IBUP-1985 PO; +ONDA-243 PO
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
[2024-12-28] MEDS: ibuprofen tablet 400 MG TABLET PO STA (01:25)
[2024-12-28 01:27] VITALS: BP 148/84; PULSE 86; RESP 20; TEMP 98.6; O2SAT 99
[2024-12-30] MEDS ORDERED: IBUP-1984 PO (10:37)
== END 2024-12-28 01:29 | disposition home or self-care (01) ==
LOC: ER 23:26
DX: T81.30XA Disruption of wound, unspecified, initial encounter (principal); Z89.511 Acquired absence of right leg below knee; E11.9 Type 2 diabetes mellitus without complications; Z79.82 Long term (current) use of aspirin; Y84.8 Other medical procedures as the cause of abnormal reaction of the patient, or of later complication, without mention of misadventure at the time of the procedure; Y92.89 Other specified places as the place of occurrence of the external cause
CPT/HCPCS: 99284; A6449

== ENCOUNTER 2024-12-30 13:57 | Day surgery (SDC) | payer MEDICAID ==
[~2024-12-30] VITALS: Ht 177.8 cm; Wt 104.5 kg
[2024-12-30] VITALS (13 sets, daily range): BP systolic 109–156; BP diastolic 54–98; PULSE 63–89; RESP 9–21; TEMP 98.4; O2SAT 97–100
[~2024-12-30 13:57] MED LIST changes: +IBUP-1984 PO; +VANCOMYCIN/H2O 1.5g/300mL PB 300 ML IV ONE; +ceFAZolin 2gm/dext,iso 50mL 50 ML IV ONE; +famotidine 20mg tablet PO ONE; +ringers solution, lacted 1,000 ML IV SCH
[2024-12-30 14:47] LABS: BASOPHILS # (AUTO) 0.1 X10'3 (0-0.2); BASOPHILS % (AUTO) 1.2 % (0-1); EOSINOPHILS # (AUTO) 0.1 X10'3 (0-0.9); EOSINOPHILS % (AUTO) 1.5 % (0-6); LYMPHOCYTES # (AUTO) 1.5 X10'3 (1.1-4.8); LYMPHOCYTES % (AUTO) 24.9 % (21-51); MEAN CORPUSCULAR HEMOGLOBIN 27.6 PG (27.0-31.0); MEAN CORPUSCULAR HGB CONC 32.9 g/dL (33.0-36.5); MEAN CORPUSCULAR VOLUME 83.8 FL (78-98); MEAN PLATELET VOLUME 7.7 FL (7.4-10.4); MONOCYTES # (AUTO) 0.5 X10'3 (0-0.9); MONOCYTES % (AUTO) 8.3 % (2-12); NEUTROPHILS # (AUTO) 3.9 X10'3 (1.8-7.7); NEUTROPHILS % (AUTO) 64.1 % (42-75); PRE OP HEMATOCRIT 27.3 % (42.0-52.0); PRE OP PLATELET COUNT 457 X10'3 (140-440); PRE OP WHITE BLOOD COUNT 6.1 10'3 (4.8-10.8); RED BLOOD COUNT 3.25 X10'6 (4.70-6.10); RED CELL DISTRIBUTION WIDTH 16.7 % (11.5-14.5)
[2024-12-30 14:52] LABS: ALBUMIN 2.5 G/DL (3.4-5.0); ALBUMIN/GLOBULIN RATIO 0.4 (1.1-1.5); ALKALINE PHOSPHATASE 90 IU/L (46-116); BLOOD UREA NITROGEN 12 MG/DL (7-18); BUN/CREATININE RATIO 9.7 (10.0-20.0); CALCIUM 8.6 MG/DL (8.5-10.1); CHLORIDE 108 MMOL/L (99-107); CREATININE 1.24 MG/DL (0.60-1.10); PRE OP ALT 9 U/L (30-65); PRE OP ANION GAP 7 (8-16); PRE OP AST 19 U/L (10-37); PRE OP BILIRUB, TOTAL 0.2 MG/DL (0.0-1.0); PRE OP GLUCOSE 92 MG/DL (70-104); PRE OP POTASSIUM 4.1 MMOL/L (3.4-5.1); PRE OP SODIUM 141 MMOL/L (135-145); TOTAL CARBON DIOXIDE 26.5 MMOL/L (24-32); TOTAL PROTEIN 8.6 G/DL (6.4-8.2); eCRCL 72 ML/MIN; eGFR 61 ML/MIN
[2024-12-30] MEDS ORDERED: scopolamine 1MG/72H patch 1 PATCH PATCH.TD.3 TD ONE (15:18)
[2024-12-30] MEDS ORDERED: bacitracin 15gm ointment TP ONE (18:36)
[2024-12-30] MEDS ORDERED: BUPIVAcaine 2.5mg/ml inj 50ml vial (contains preservative) ONE (18:36)
[2024-12-30] MEDS ORDERED: fentaNYL/PF 50MCG/1 ML 2ML syringe ONE (18:46)
[2024-12-30] MEDS ORDERED: midazolam 1 mg/ML 2ml injection ONE ×2 (18:47→19:01)
[2024-12-30] MEDS ORDERED: propofol inj 20 ML IV ONE (18:47)
[2024-12-30] MEDS ORDERED: sevoflurane 250ml liquid IH ONE (19:20)
[2024-12-30] MEDS ORDERED: vancomycin 1,000mg inj ONE (19:35)
[2024-12-30] MEDS ORDERED: acetaminophen 1,000mg/100ml IV 100 ML IV ONE (20:23)
[2024-12-30] MEDS ORDERED: HYDROmorphone/PF 0.2 MG/ML SYRINGE IV PRN (20:35)
[2024-12-30] MEDS ORDERED: ringers solution, lacted 1,000 ML IV SCH (20:35)
[2024-12-30] MEDS ORDERED: labetalol 20mg/4ml (5mg/ml) syringe IV PRN (20:35)
[2024-12-30] MEDS ORDERED: morphine 2 MG/ML inj. syringe IV PRN (20:35)
[2024-12-30] MEDS ORDERED: morphine 4 MG/ML inj SYRINge IV PRN (20:35)
[2024-12-30] MEDS ORDERED: ondansetron/PF 4mg/2ml inj IV PRN ×2 (20:35→21:25)
[2024-12-30] MEDS ORDERED: hydrALAZINE 20mg/ml inj. IV PRN (20:35)
[2024-12-30] MEDS: ondansetron/PF 4mg/2ml inj ONE (20:37)
--- NOTE | 2024-12-30 20:41 | OPERATIVE REPORT ---
Operative Report Providers to CC ~ Date of Procedure: Dec 30, 2024 Pre-Operative Diagnosis: Wound dehiscence right ipqkj-ywk-jfmy amputation site Post-Operative Diagnosis SAME as PRE-Op Procedure Performed Irrigation debridement evacuation of hematoma right [id number] amputation post wound dehiscence. Primary closure. Placement of drain. Placement of antibiotic vancomycin powder. Surgeon: Bolivar Aldridge MD [employer] Room Attendant On Anesthesiologist: Marco Antonio Patiño ([facility] spinal or general) Type of Anesthesia: General Findings: Wound dehiscence anterior flap with a large hematoma involving the posterior flap Complications None Prosthetics\Implants used: Medium-size Hemovac drain Estimated Blood Loss: 50 cc Specimen Removed: Hematoma Description of Procedure: Patient was taken to the operating room on an urgent basis since he fall fell causing increased bleeding and wound dehiscence to his bzlkn-cni-ocyc amputation two weeks postop. I obtained informed consent after I signed his extremity. Once in the operating room he was given a general anesthetic this left his leg was prepped and draped with Betadine solution a tourniquet was placed in the upper thigh but not used. Surgical time-out was taken per protocol and the case was begun. The dehisced anterior incision of the [id number]-[id number]-rarz amputation was exposed removing some additional philip leaving the side flaps in place was able to then evacuate a large hematoma that involve the anterior lateral compartment and posterior flap pulsatile irrigation with 3 L with antibiotics was used no acute bleeding was encountered all the tissues were viable. Closure was accomplished with the posterior flap starting with fat 1st. I used 0 Vicryl interrupted sutures to reposition of the posterior flap to the anterior border of the tibia a Hemovac drain was placed in the depths of the posterior flap exited out laterally to close suction. 1 g of vancomycin powder was placed. Subcuticular closure was accomplished with 2-0 Vicryl skin was closed with a 2-0 nylon and philip. Patient was now placed with sterile dressings Xeroform 4x4s sterile soft roll and a stump sock that was supported with a 6 in Jesse wrap. Patient was now extubated and taken to recovery room in stable condition there were no apparent perioperative complications Counts repoted as correct: Yes BOLIVAR ALDRIDGE MD Dec 30, 2024 20:41
[2024-12-30] MEDS: ketorolac trometh 30MG/ML vial 30 MG/ML VIAL IV ONE (20:44)
[2024-12-30] MEDS: HYDROmorphone/PF 0.2 MG/ML SYRINGE IV PRN (20:45)
[2024-12-30] MEDS: proCHLORperazine 10 MG/2 ml inj IV PRN (21:17)
[2024-12-30] MEDS ORDERED: proCHLORperazine 10 MG/2 ml inj IV PRN (21:25)
[2024-12-30] MEDS: oxyCODONE/APAP 5-325mg tablet PO ONE (21:38)
== END 2024-12-30 21:49 | disposition home or self-care (01) ==
LOC: UNDOADMIN 13:57 → PAS IN 13:57 → PAS 13:57 → EDSTATUS 18:00 → PAS 21:49 → UNDODISIN 21:49
PROVIDERS: ATTEND Orthopaedic Surgery
DX: T81.31XA Disruption of external operation (surgical) wound, not elsewhere classified, initial encounter (principal); Y83.8 Other surgical procedures as the cause of abnormal reaction of the patient, or of later complication, without mention of misadventure at the time of the procedure; E11.9 Type 2 diabetes mellitus without complications; F43.10 Post-traumatic stress disorder, unspecified; Z98.890 Other specified postprocedural states; Z87.891 Personal history of nicotine dependence; Z79.899 Other long term (current) drug therapy
CPT/HCPCS: 12020; 36415; 80053; 82948; 85025; A6222; J0131; J0780; J1171; J1885; J2250; J2405; J2704; J3010; J3370; J7030; Z7506; Z7508; Z7512; A4215; A4618; A6449; A7000; J3490

== ENCOUNTER → 2025-01-10 | Emergency (ER) | payer MEDICAID ==
[~2025-01-10] VITALS: Ht 177.8 cm; Wt 104.5 kg
[~2025-01-10] MED LIST changes: -ASPI81TA52 PO; -DOCU100C40 PO; -ONDA-243 PO; -VANCOMYCIN/H2O 1.5g/300mL PB 300 ML IV ONE; -ceFAZolin 2gm/dext,iso 50mL 50 ML IV ONE; -famotidine 20mg tablet PO ONE; -ringers solution, lacted 1,000 ML IV SCH
[2025-01-10 16:58] VITALS: BP 137/79; PULSE 78; RESP 18; TEMP 97.7; O2SAT 100
--- NOTE | 2025-01-10 17:35 | Physician Documentation ---
History of Present Illness ~ Chief Complaint: Post-operative complication Stated Complaint: RT LEG PAIN OK to notify your PCP?: Yes Primary Medical Doctor: GAVIOTA Julien. Source: patient Mode of Arrival: POV Exam Limitations: no limitations HPI 54-year-old male presents with postop wound complication. He had right zkyag-yhj-dbue amputation on 12/03/2024 and his wound VAC is not working properly and some philip have come undone. He has a home health nurse but she has been on a leave of absence. Tetanus within 5 years: Yes Medication Reconciliation Allergies: Coded Allergies: No Known Allergies (Unverified , 12/27/24) Scheduled PRN Ibuprofen* (Motrin*), 1 TAB PO Q8H PRN for pain, (Reported) Past Medical History Past Medical History: Diabetes Past Surgical History: noncontributory Patient History: Patient reports no known family medical history. Alcohol Use: None Drug Use: none Lives In: Home Occupation: employed Review of Systems All Other Systems at this time: Reviewed and Negative Physical Exam Vital Signs: RN Vital Signs have been reviewed: Yes, Temperature: 97.7, Source: Temporal, Heart Rate: 78, Respiratory Rate: 18, BP: 137/79, Pulse Oximetry: 100, Weight: 104.550 Oxygen Flow Rate: 0 Pulse Oximetry Reflects: adequate oxygenation Physical Exam General: Alert, no distress. HEENT: No injection, moist mucous membranes. Neck: Full range of motion. Respiratory: No respiratory distress, equal chest rise and fall. Chest: No accessory muscle use. Cardiovascular: Regular rate and rhythm. Gastrointestinal: Nondistended. Extremities: Wound VAC and bandaging in place to right lower extremity. Neurologic: Oriented x4. Psychiatric: Normal mood and affect. Skin: Normal color, warm and dry. Progress Results/Orders Results/Orders Vital Signs 01/10/25 16:58 Temp 97.7 Pulse 78 Resp 18 B/P (MAP) 137/79 Pulse Ox 100 O2 Flow Rate 0 Departure Referrals: NO PRIMARY CARE PROVIDER (PCP) Additional Comment Medical Screen Exam This patient recieved a medical screening examination. After reviewing the individual's medical complaints with presenting symptoms and performing an appropriate physical examination, it was determined that no immediate life- threatening emergency medical condition is present. This individual is also not a women having contractions. LORENA MC CLINICAL NUTRITIONIST Jan 10, 2025 17:35
== END | disposition left against medical advice (07) ==
LOC: ER 16:56
DX: M96.89 Other intraoperative and postprocedural complications and disorders of the musculoskeletal system (principal); E11.9 Type 2 diabetes mellitus without complications
CPT/HCPCS: 99281; 99283

== ENCOUNTER 2025-03-16 14:35 | Emergency (ER) | payer MEDICAID ==
[~2025-03-16] VITALS: Ht 180.3 cm; Wt 90.0 kg
[2025-03-16 14:36] VITALS: BP 103/56; PULSE 81; RESP 16; TEMP 97.8; O2SAT 100
[2025-03-16 15:40] LABS: MEAN PLATELET VOLUME 9.4 FL (7.4-10.4); RED CELL DISTRIBUTION WIDTH 14.1 % (11.5-14.5)
[2025-03-16 15:57] LABS: CREATININE 1.03 MG/DL (0.60-1.10); TOTAL CARBON DIOXIDE 27.6 MMOL/L (24-32); eCRCL 89 ML/MIN; eGFR 76 ML/MIN
--- NOTE | 2025-03-16 16:14 | Physician Documentation ---
HPI ~ General Chief Complaint: Tooth Problem Stated Complaint: TOOTH AND JAW PAIN Time Seen by MD: 16:04 Primary Medical Doctor: GAVIOTA Julien. History of Present Illness HPI Comment Patient is a 52-year-old male that presents to the emergency department for evaluation of lower left tooth pain times several days. Patient reports he has a significant history of tooth abscesses in tooth pain. Reports that his pain has decreased since this morning just concerned about the swelling at the gumline. Patient reports he normally receives antibiotics to clear this up. No fevers no nausea no vomiting no difficulty swallowing. No other complaints reported at this time. Medication Reconciliation Allergies: Coded Allergies: No Known Allergies (Unverified , 03/16/25) Scheduled PRN Ibuprofen* (Motrin*), 1 TAB PO Q8H PRN for pain, (Reported) Past Medical History Past Medical History: Diabetes Past Surgical History: noncontributory Patient History: Patient reports no known family medical history. Alcohol Use: None Drug Use: none Lives In: Home Occupation: employed Review of Systems ROS As stated above in the HPI, otherwise all systems are reviewed and negative. Physical Exam Vital Signs: Temperature: 97.8, Source: Temporal, Heart Rate: 81, Respiratory Rate: 16, BP: 103/56, Pulse Oximetry: 100, Weight: 90.000 Oxygen Flow Rate: 0 Physical Exam VITALS: Reviewed and as above. GENERAL: Alert, no apparent distress. HEENT: Normocephalic, atraumatic, PERRL, EOMI, dry mucosa, no erythema. edema noted to the left lower jaw, mild lymphadenopathy to the submandibular lymph lymph nodes, no lymphadenopathy noted in the submental lymph nodes at this time. RESPIRATORY: Lungs clear, normal breath sounds, no respiratory distress. CHEST: No accessory muscle use, no retractions CV: Regular rate, rhythm, no edema, no murmur, No: JVD GI: Soft, non-tender, bowels sounds present, no rebound, guarding, or rigidity BACK: No CVA tenderness, or swelling MUSCULOSKELETAL No deformities, no edema SKIN: Warm and dry, no rash NEURO: Oriented x4, No motor or sensory deficit PSYCH: Normal mood and affect, no agitation Progress Results/Orders Results/Orders Vital Signs 03/16/25 14:36 Temp 97.8 Pulse 81 Resp 16 B/P (MAP) 103/56 Pulse Ox 100 O2 Flow Rate 0 Laboratory Tests Test 8/28/25 15:24 White Blood Count 6.7 Red Blood Count 4.45 L Hemoglobin 13.1 L Hematocrit 37.9 L Mean Corpuscular Volume 85.0 Mean Corpuscular Hemoglobin 29.5 Mean Corpuscular Hemoglobin Concent 34.7 Red Cell Distribution Width 14.1 Platelet Count 227 Mean Platelet Volume 9.4 Neutrophils (%) (Auto) 78.1 H Lymphocytes (%) (Auto) 14.2 L Monocytes (%) (Auto) 6.7 Eosinophils (%) (Auto) 0.7 Basophils (%) (Auto) 0.3 Neutrophils # (Auto) 5.2 Lymphocytes # (Auto) 0.9 L Monocytes # (Auto) 0.4 Eosinophils # (Auto) 0.0 Basophils # (Auto) 0.0 CBC Comment Sodium Level 138 Potassium Level 3.3 L Chloride Level 105 Carbon Dioxide Level 27.6 Anion Gap 5 L Blood Urea Nitrogen 12 Creatinine 1.03 Estimated GFR/1.73 m2 76 BUN/Creatinine Ratio 11.7 Glucose Level 154 H Calcium Level 8.5 Albumin 3.2 L Chemistry Comments Medical Decision Making Findings Patient presents for dental pain due to suspected dental annie. Patient not immunosuppressed, afebrile and well appearing with patent airway, have low suspicfion for deep space infection or any concern for airway compromise. Based on history, physical, and work up. No evidence of tooth fracture, avulsion, or bleeding socket. No evidence of RPA, ACCOUNTING INTERN, Ludwigs angina, periapical abscess. Instructed patient to continue to treat pain with ibuprofen/acetaminophen until they see a dentist. Antibiotics prescribed. Patient discharged home and will follow up with dentist. Discussed return precautions for odontogenic infections and other dental pain emergencies. He will follow up with primary care provider. Patient will return to the emergency department if he has any worseni ng of his current symptoms i.e. additional swelling difficulty swallowing increased pain fevers nausea vomiting or any other concerning symptoms. Differential Dx:Considerations: Include: Alveolar fracture, Alveolar osteitis, ANUG, Facial Cellulitis, Periapical abscess, Peridontal abscess, Post-extraction bleeding, Pulpitis, Tooth avulsion, Tooth eruption, Tooth Fracture, Trigeminal neuralgia, Tooth subluxation, Other Departure Disposition: 01 HOME / SELF CARE / HOMELESS Impression: Primary Impression: Dental abscess Additional Impressions: Swelling Tooth pain Lymphadenopathy Additional Instructions: Patient presents for dental pain due to suspected dental annie. Patient not immunosuppressed, afebrile and well appearing with patent airway, have low suspicfion for deep space infection or any concern for airway compromise. Based on history, physical, and work up. No evidence of tooth fracture, avulsion, or bleeding socket. No evidence of RPA, ACCOUNTING INTERN, Ludwigs angina, periapical abscess. I nstructed patient to continue to treat pain with ibuprofen/acetaminophen until they see a dentist. Antibiotics prescribed. Patient discharged home and will follow up with dentist. Discussed return precautions for odontogenic infections and other dental pain emergencies. He will follow up with primary care provider. Patient will return to the emergency department if he has any wo rsening of his current symptoms i.e. additional swelling difficulty swallowing increased pain fevers nausea vomiting or any other concerning symptoms. Tylenol ibuprofen as needed for discomfort. Soft foods increase liquids until you are able to follow up with her dentist or her primary care provider. Referrals: NO PRIMARY CARE PROVIDER (PCP) Prescriptions Amox Tr/Potassium Clavulanate (Augmentin 875-125 Tablet) 1 Each Tablet 1 TAB PO Q12H for 10 Days, #20 TAB Prov: JOSE LANDON 03/16/25 Education Educated: Patient Educated regarding: diagnosis, treatment, need for follow up Signature Scribe Signature: A Attestation: Scribed for Jose Landon by LOULOU Larsen . 03/16/25 16:25 JOSE LANDON Mar 16, 2025 16:14
[2025-03-16] MEDS ORDERED: AMOX-117 PO (16:23)
== END 2025-03-16 16:35 | disposition home or self-care (01) ==
LOC: ER 14:35
DX: K04.7 Periapical abscess without sinus (principal); R59.1 Generalized enlarged lymph nodes; E11.9 Type 2 diabetes mellitus without complications
CPT/HCPCS: 36415; 80048; 85025; 99284